=== PATIENT | female | born 1960 | race American Indian/Alaskan Native ===

== ENCOUNTER 2018-01-01 13:35 | Inpatient (IN) | payer OTHER ==
[2018-01-01] MEDS ORDERED: VERSED IV ONE ×3 (14:30→21:47)
[2018-01-01] MEDS ORDERED: VERSED ONE (14:48)
[2018-01-01] MEDS ORDERED: SUBLIMAZE ONE (14:48)
[2018-01-01] MEDS ORDERED: HEPARIN/NS 5000 UNIT/500ML(CATH LAB) 500 ML IR ONE (14:49)
--- NOTE | 2018-01-01 14:52 | Event Note ---
Date: 01/01/[address] lines in the right neck, and bilateral groins, and was unsuccessful. Patient presents with hypertensive emergency with new onset seizure. Request for line access. 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 agrees with central catheter placement. Risks, benefits, and alternatives discussed.
--- NOTE | 2018-01-01 14:52 | Cat Scan Report ---
CT HEAD WITHOUT CONTRAST: HISTORY: Neurological deficit. TECHNIQUE: Sequential 2.5mm CT images. COMPARISON: none. FINDINGS: Cerebral Parenchyma: Within normal limits. Cerebellum: Within normal limits. Brainstem: Within normal limits. Ventricles: Normal. Sella: Normal. Extra-axial spaces: Normal. Basal Cisterns: Normal. Intracranial Hemorrhage: None. Midline Shift: None. Calvarium: Normal. Sinuses: Normal. Mastoid Air Cells: Normal. Visualized Orbits: Normal. IMPRESSION: Cranial CT scan within normal limits. These findings were discussed with Dr. Bishop in the emergency department at 1451 hrs.
[2018-01-01] MEDS: XYLOCAINE 1%/ EPI 1:100,000 INFILTRATI ONE ×2 (15:05→15:06)
--- NOTE | 2018-01-01 15:28 | Operative Report ---
Operative Report Operative Report: EXAM: 1. Ultrasound-guided puncture of the right internal jugular vein 2. Fluoroscopic-guided placement of a right internal jugular tunneled non- cuffed smallbore dual-lumen catheter. DATE: 01/01/18 INDICATION: 57-year-old female with seizures, inability to obtain central access despite trying 3 extremities, with request for IV access. MEDICATIONS: Local anesthetic DEVICES: 5 [place] dual-lumen power PICC catheter SLEEP LAB TECHNICIAN: ZEUS CORDERO MD CONTRAST: None PROCEDURE: The risks, benefits, and alternatives were discussed and informed consent was obtained. The patient was transported to the angiography suite in satisfactory/ stable condition and was transported onto the angiography table. The patient's right internal jugular vein was assessed with ultrasound and determined to be patent prior to procedure. The patient was prepped and draped in a sterile fashion. The puncture site was anesthetized. Under sonographic guidance, the right internal jugular vein was punctured with a 21-gauge micropuncture needle and a 0.018 inch wire was advanced into the inferior vena cava. A suitable exit site was identified on the patient's chest inferior and lateral to the venotomy. The site was anesthetized with local anesthetic and the track was anesthetized. Dermatotomy was made. The 5 [place] dual-lumen smallbore catheter was tunneled between the dermatotomy to the venotomy with the assistance of the peel-away sheath, micropuncture needle, and 0.018 inch wire. Over 0.018 inch wire, the transitional dilator was exchanged for a 5 [place] peel -away sheath. The wire was used to zahra intravascular distance and removed. The catheter was cut to appropriate size. The catheter was advanced through the peel-away sheath and positioned centrally under fluoroscopic guidance. The peel-away sheath was removed. Venotomy was closed with Dermabond. 2-0 Ethilon suture was used to secure the catheter at the dermatotomy. The catheter was charged with heparin per protocol. Biopatch and sterile dressing applied. The patient was transferred from the angiography suite back to the floor in stable condition. FINDINGS: 1. Excellent flow was obtained through the dual lumen smallbore tunneled catheter. 2. The catheter tip is in the right atrium. IMPRESSION: 1. Successful ultrasound and fluoroscopically guided placement of a right internal jugular tunneled non-cuffed dual-lumen catheter.
--- NOTE | 2018-01-01 15:50 | History and Physical Report ---
History of Present Illness Chief complaint: She had a seizure at work History of present illness: 57 YO Female with MO, HTN, CKD presents to ED for evaluation. Pt is confused and unable to provide detailed history. Pt is at bedside and provides history. As per , the patient was at work and had a witnessed seizure as per a coworker. EMS was notified, and upon arrival the patient was found to be confused and postictal. Pt was transported to [facility] for further care and evaluation. Pt seen and evaluated in ED and found to be postictal, but is able to protect her airway. Pt is confused, and Encephalopathic but does not exhibit focal motor/sensory deficit. Vascular surgery consulted in ED for IV access. Pt taken to senior laboratory technician and underwent tunneled catheter placement. Pt also found to have Hypertensive Emergency, Acute Renal Failure as well as Acute Systolic CHF. Pt initiated on Cardene drip and admitted to ICU. Cardiology consulted in ED. Past History Past Medical History: hypertension, renal failure Past Surgical History: Other (Shoulder surgery) Social history: , lives with family. denies: smoking, alcohol abuse, prescription drug abuse Family history: hypertension Medications and Allergies Allergies Allergy/AdvReac Type Severity Reaction Status Date / Time No Known Allergies Allergy Unverified 01/29/17 10:56 Home Medications Medication Instructions Recorded Confirmed Last Taken Type Sulfamethoxazole/Trimethoprim 1 each PO BID #14 tablet 01/29/17 Unknown Rx [Bactrim DS TAB] oxyCODONE /ACETAMINOPHEN [Percocet 1 - 2 tab PO Q6HR PRN #14 tablet 01/29/17 Unknown Rx 5/325] Review of Systems ROS unobtainable: due to mental status Exam - Constitutional Vitals: Temp Pulse Resp BP Pulse Ox 118 H 16 211/134 92 01/01/18 14:42 01/01/18 14:42 01/01/18 14:42 01/01/18 14:42 General appearance: Present: mild distress - EENT Eyes: Present: PERRL ENT: hearing intact, clear oral mucosa - Neck Neck: Present: supple, normal ROM - Respiratory Respiratory effort: normal Respiratory: bilateral: CTA - Cardiovascular Heart Sounds: Present: S1 & S2. Absent: rub, click - Extremities Extremities: pulses symmetrical, No edema Peripheral Pulses: within normal limits - Abdominal General gastrointestinal: Present: soft, non-tender, non-distended, normal bowel sounds Female genitourinary: Present: normal - Integumentary Integumentary: Present: clear, warm, dry - Musculoskeletal Musculoskeletal: generalized weakness - Psychiatric Psychiatric: no appropriate mood/affect, no intact judgment & insight, no memory intact - Neurologic Neurologic: no focal deficits, moves all extremities, no gait normal Results - Labs CBC & Chem 7: 01/01/18 15:46 01/01/18 15:46 Labs: Abnormal lab results 01/01/18 Range/Units 13:43 POC Glucose 212 H (70-105) Assessment and Plan - Patient Problems (1) Encephalopathy Current Visit: Yes Status: Acute Plan to address problem: CT Head, EEG, neuro checks, aspiration precautions, (2) CHF (congestive heart failure) Current Visit: Yes Status: Acute Qualifiers: Heart failure type: systolic Heart failure chronicity: acute Qualified Code(s): I50.21 - Acute systolic (congestive) heart failure Plan to address problem: Admit to telemetry, cardiology consulted in ED, bnp, strict I/O, monitor uop q shift, daily weight, chest x ray, echo. (3) ARF (acute renal failure) with tubular necrosis Current Visit: Yes Status: Acute Plan to address problem: IVF resuscitation therapy, monitor uop q shift, repeat bmp, (4) Status epilepticus Current Visit: Yes Status: Acute Plan to address problem: Seizure precautions, continue antiepileptic therpay (5) Hypertensive crisis Current Visit: Yes Status: Acute Plan to address problem: Juan David long, admit to ICU The high probability of a clinically significant, sudden or life threatening deterioration of the [Cardiac, renal, ] system(s) required my full and direct attention, intervention and personal management. The aggregate critical care time was [65] minutes. This time is in addition to time spent performing reported procedures but includes the following: [x] Data Review and interpretation [x] Patient assessment and monitoring of vital signs [x] Documentation [x] Medication orders and management (6) DVT prophylaxis Current Visit: Yes Status: Acute Plan to address problem: SCD to BLE while in bed
[2018-01-01] MEDS ORDERED: NORMODYNE IV ONE ×2 (15:53→15:56)
[2018-01-01] MEDS ORDERED: KEPPRA 1,000 MG/NS 0.75% 100ML 1,000 MG/100 ML BAG IV ONE (15:57)
[2018-01-01 16:15] LABS: Basophils % (Auto) 0.4 % (0.0-1.8); Eosinophils # (Auto) 0.1 K/mm3 (0.0-0.4); Eosinophils % (Auto) 0.7 % (0.0-4.3); Hematocrit 31.6 % (30.3-42.9); Hemoglobin 10.4 gm/dl (10.1-14.3); Lymphocytes # (Auto) 1.3 K/mm3 (1.2-5.4); Lymphocytes % (Auto) 15.9 % (13.4-35.0); Mean Corpuscular HGB Conc 33 % (30-34); Mean Corpuscular Hemoglobin 28 pg (28-32); Mean Corpuscular Volume 83 fl (79-97); Monocytes # (Auto) 0.8 K/mm3 (0.0-0.8); Monocytes % (Auto) 9.3 % (0.0-7.3); Platelet Count 252 K/mm3 (140-440); Red Blood Count 3.79 M/mm3 (3.65-5.03); Red Cell Distribution Width 15.4 % (13.2-15.2)
--- NOTE | 2018-01-01 16:20 | Emergency Department Report ---
ED General Adult HPI - General Chief complaint: Altered Mental Status Stated complaint: SEIZURES Time Seen by Provider: 01/01/18 15:28 Source: EMS Mode of arrival: Stretcher Limitations: No Limitations - History of Present Illness Initial comments: This is a 57 year old female who has a history of hypertension. She arrives in the emergency department apparently postictal with extremely elevated blood pressure. 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 He states that she is on a blood pressure medicine but he does not know which. Apparently she had a seizure at work. She has never had a seizure before. Initial blood pressure was approximately 220/120. She required sedation as she was poorly cooperative. She appeared to have a nonfocal exam. Her mental status was consistent with postictal this. Nursing staff found no her full axis. She had a very short neck and is morbidly obese. I made an attempt to cannulate EJ which was barely visible. I made an attempt to assess her femoral vein which was successful. However due to her extreme obesity I could not thread a guidewire. Retraction was obviously extremely difficult even with several nurses assisting. The patient was given 2.5 mg of Versed IM. I notified Dr. Horowitz of vascular who came to the emergency department to consult. He stated that due to the patient's body habitus the Technical Staff Assistant wouldn' t be much preferable for IV access. As such I accompanied the patient to the CT suite. Her CT looked grossly negative to me and the patient proceeded to the Technical Staff Assistant where Dr. Horowitz placed a tunneled PICC line. -: Sudden - Related Data Previous Rx's Medication Instructions Recorded Last Taken Type Sulfamethoxazole/Trimethoprim 1 each PO BID #14 tablet 01/29/17 Unknown Rx [Bactrim DS TAB] oxyCODONE /ACETAMINOPHEN [Percocet 1 - 2 tab PO Q6HR PRN #14 tablet 01/29/17 Unknown Rx 5/325] Allergies Allergy/AdvReac Type Severity Reaction Status Date / Time No Known Allergies Allergy Unverified 01/29/17 10:56 ED Review of Systems ROS: Stated complaint: SEIZURES Other details as noted in HPI Comment: Unobtainable due to pts medical conditions ED Past Medical Hx - Past Medical History Previous Medical History?: Yes Hx Hypertension: Yes Hx Renal Disease: Yes (stage 2) - Surgical History Past Surgical History?: Yes Additional Surgical History: shoulder sgy 3 wks ago - Social History Smoking Status: Unknown if ever smoked Substance Use Type: None - Medications Home Medications: Home Medications Medication Instructions Recorded Confirmed Last Taken Type Sulfamethoxazole/Trimethoprim 1 each PO BID #14 tablet 01/29/17 Unknown Rx [Bactrim DS TAB] oxyCODONE /ACETAMINOPHEN [Percocet 1 - 2 tab PO Q6HR PRN #14 tablet 01/29/17 Unknown Rx 5/325] ED Physical Exam - General Limitations: Altered Mental Status General appearance: obese (morbidly) - Head Head exam: Present: atraumatic - Eye Eye exam: Present: PERRL, EOMI (as testable no forced gaze) Pupils: Present: other (equal and reactive pupils) - ENT ENT exam: Present: mucous membranes moist - Neck Neck exam: Present: other (short neck). Absent: meningismus - Respiratory Respiratory exam: Present: normal lung sounds bilaterally - Cardiovascular Cardiovascular Exam: Present: regular rate, normal rhythm. Absent: systolic murmur, diastolic murmur, rubs, gallop - GI/Abdominal GI/Abdominal exam: Present: soft, tenderness (not apparent). Absent: distended , guarding - Extremities Exam Extremities exam: Present: other (extremely obese without gross deformity) - Neurological Exam Neurological exam: Present: other (postictal and nonlateralizing exam) - Psychiatric Psychiatric exam: Present: agitated - Skin Skin exam: Present: warm, dry, intact, normal color. Absent: rash ED Course Vital Signs 01/01/18 01/01/18 14:03 14:42 Pulse Rate 102 H 118 H Respiratory 16 16 Rate Blood Pressure 222/135 211/134 [Left] O2 Sat by Pulse 92 92 Oximetry - Reevaluation(s) Reevaluation #1: A PICC line was placed in the phlebotomist medical lab assistant. The patient's mental status was progressively improving in the CT suite. After she returned from the Technical Staff Assistant her blood pressure was still remarkably elevated. She was given labetalol and placed on a Cardene drip. She was given a gram of Keppra. Her was kept informed of the progress. I discussed the case with Dr. Robbins. He will be admitting the patient to the intensive care unit. Laboratory studies are yet pending. I discussed a CT of the head with Dr. Xavi Alatorre. He stated that it was essentially normal. 01/01/18 16:21 ED Medical Decision Making - Lab Data Result diagrams: 01/01/18 15:46 Laboratory Results - last 24 hr 01/01/18 01/01/18 13:43 15:46 WBC 8.1 RBC 3.79 Hgb 10.4 Hct 31.6 MCV 83 MCH 28 MCHC 33 RDW 15.4 H Plt Count 252 Lymph % (Auto) 15.9 [place] % (Auto) 9.3 H Eos % (Auto) 0.7 Baso % (Auto) 0.4 Lymph # 1.3 [place] # 0.8 Eos # 0.1 Baso # 0.0 Seg Neutrophils % 73.7 H Seg Neutrophils # 6.0 POC Glucose 212 H Laboratory Results - last 24 hr 01/01/18 01/01/18 01/01/18 13:43 15:46 15:46 WBC 8.1 RBC 3.79 Hgb 10.4 Hct 31.6 MCV 83 MCH 28 MCHC 33 RDW 15.4 H Plt Count 252 Lymph % (Auto) 15.9 [place] % (Auto) 9.3 H Eos % (Auto) 0.7 Baso % (Auto) 0.4 Lymph # 1.3 [place] # 0.8 Eos # 0.1 Baso # 0.0 Seg Neutrophils % 73.7 H Seg Neutrophils # 6.0 PT 14.3 INR 1.06 APTT 26.7 Thrombin Time POC Glucose 212 H 01/01/18 15:46 WBC RBC Hgb Hct MCV MCH MCHC RDW Plt Count Lymph % (Auto) [place] % (Auto) Eos % (Auto) Baso % (Auto) Lymph # [place] # Eos # Baso # Seg Neutrophils % Seg Neutrophils # PT INR APTT Thrombin Time 16.2 POC Glucose - EKG Data -: EKG Interpreted by Me EKG shows normal: sinus rhythm, intervals, QRS complexes, ST-T waves Rate: normal - EKG Data Interpretation: other (left axis deviation) - Radiology Data Radiology results: report reviewed interpreted by me: Chest x-ray pending Critical Care Time: Yes Critical care time in (mins) excluding proc time.: 90 Critical care attestation.: If time is entered above; I have spent that time in minutes in the direct care of this critically ill patient, excluding procedure time. ED Disposition Clinical Impression: Hypertensive crisis, Generalized seizure Disposition: [id number] OP ADMIT IP TO THIS HOSP Is pt being admited?: Yes Does the pt Need Aspirin: No (we will hold aspirin now until blood pressure reasonably controlled) Condition: Stable Referrals: PRIMARY CARE, [Primary Care Provider] - 3-5 Days Time of Disposition: 16:31
[2018-01-01 16:24] LABS: INR 1.06 (0.87-1.13)
[2018-01-01 16:25] LABS: Partial Thromboplastin Time 26.7 Sec. (24.2-36.6)
[2018-01-01 16:34] LABS: Creatine Kinase MB 3.1 ng/mL (0.0-4.0)
[2018-01-01 16:36] LABS: Alanine Aminotransferase 8 units/L (7-56); Albumin 3.5 g/dL (3.9-5)
[2018-01-01] MEDS ORDERED: SODIUM CHLORIDE FLUSH SYRINGE 10 ML IV PRN ×2 (16:41→16:48)
[2018-01-01 16:42] LABS: Bilirubin,Direct < 0.2 mg/dL (0-0.2)
[2018-01-01] MEDS ORDERED: NITROSTAT SL PRN (16:48)
[2018-01-01 16:55] LABS: Chol/HDL Ratio 1.97 %
[2018-01-01] MEDS: CARDENE 50 MG in NACL 0.9% 250ML 230 ML IV SCH ×2 (17:09→21:10)
--- NOTE | 2018-01-01 17:09 | XRay Report ---
FINAL REPORT EXAM: XR CHEST 1V AP HISTORY: hypertension consume is TECHNIQUE: upright single view chest PRIORS: None. FINDINGS: Cardiac and mediastinal contours are unremarkable. No focal pulmonary infiltrate is identified. No pleural fluid collection seen. Pulmonary vasculature is unremarkable. SALES PERSON shunt tubing overlies the right naz thorax. Partially seen is a left shoulder prosthesis IMPRESSION: Shunt tubing in left shoulder prosthesis No acute abnormality identified in the chest
[2018-01-01 17:32] LABS: Bilirubin,Urine NEG (Negative); Blood,Urine SM (Negative); Color,Urine Yellow (Yellow); Hyaline Casts,Urine 1 /LPF; Mucus,Urine FEW /HPF; Urobilinogen,Urine < 2.0 mg/dL (<2.0)
[2018-01-01 17:38] LABS: Protein,Urine >500 mg/dL (Negative)
[2018-01-01] MEDS: KEPPRA PO SCH (23:35)
[2018-01-02] MEDS ORDERED: TYLENOL PO ONE (00:32)
[2018-01-02] MEDS: CARDENE 50 MG in NACL 0.9% 250ML 230 ML IV SCH ×2 (01:09→03:04)
[2018-01-02] MEDS: SODIUM CHLORIDE FLUSH SYRINGE 10 ML IV SCH ×3 (08:39→22:28)
--- NOTE | 2018-01-02 09:29 | Consultation ---
History of Present Illness Consult date: 01/02/18 Requesting physician: DORIS LEONE Reason for consult: other (Acute Encephalopathy; ELLEN; [facility]) History of present illness: PULMONARY/CCM CONSULT NOTE (Full dictation # [id number]) Please see dictated notes for full details Past History Past Medical History: hypertension, renal failure Past Surgical History: Other (Shoulder surgery) Social history: , lives with family. denies: smoking, alcohol abuse, prescription drug abuse Family history: hypertension Medications and Allergies Allergies Allergy/AdvReac Type Severity Reaction Status Date / Time No Known Allergies Allergy Unverified 01/29/17 10:56 Home Medications Medication Instructions Recorded Confirmed Last Taken Type Sulfamethoxazole/Trimethoprim 1 each PO BID #14 tablet 01/29/17 Unknown Rx [Bactrim DS TAB] oxyCODONE /ACETAMINOPHEN [Percocet 1 - 2 tab PO Q6HR PRN #14 tablet 01/29/1708/1503/31/13 20:00 Rx 5/325] Amitriptyline [Elavil] 100 mg PO HS 01/02/18 01/03/18 01/01/18 History Estradiol [Estrace] 2 mg PO DAILY 01/02/18 01/03/18 01/01/18 History Labetalol HCl 300 mg PO TID 01/02/18 01/02/18 01/01/18 History Torsemide [Demadex] 20 mg PO BID 01/02/18 01/02/18 01/01/18 History hydrALAZINE [Apresoline TAB] 100 mg PO BID 01/02/18 01/02/18 01/01/18 History Active Meds: Active Medications Nicardipine HCl 50 mg/ Sodium (Chloride) 250 mls @ 25 mls/hr IV TITR [facility]; Protocol Last Titration: 01/02/18 06:04 Dose: 2.5 mg/hr, 12.5 mls/hr Levetiracetam (Keppra) 500 mg PO BID [facility] Last Admin: 01/01/18 23:35 Dose: 500 mg Nitroglycerin (Nitrostat) 0.4 mg SL Q5M PRN PRN Reason: Chest Pain Sodium Chloride (Sodium Chloride Flush Syringe 10 Ml) 10 ml IV BID [facility] Last Admin: 01/02/18 08:39 Dose: Not Given Sodium Chloride (Sodium Chloride Flush Syringe 10 Ml) 10 ml IV PRN PRN PRN Reason: LINE FLUSH Sodium Chloride (Sodium Chloride Flush Syringe 10 Ml) 10 ml IV PRN PRN PRN Reason: LINE FLUSH Physical Examination Vital signs: Vital Signs Pulse Ox 91 01/01/18 13:42 Results - Laboratory Findings CBC and BMP: 01/01/18 15:46 01/01/18 15:46 PT/INR, D-dimer PT 14.3 Sec. (12.2-14.9) 01/01/18 15:46 INR 1.06 (0.87-1.13) 01/01/18 15:46 Abnormal lab findings: Abnormal Labs 01/01/18 01/01/18 01/01/18 13:43 15:46 15:46 RDW 15.4 H [place] % (Auto) 9.3 H Seg Neutrophils % 73.7 H Sodium 136 L BUN 24 H Creatinine 1.9 H Glucose 221 H POC Glucose 212 H Troponin T 0.039 H NT-Pro-B Natriuret Pep Albumin HDL Cholesterol 77 H 01/01/18 01/01/18 01/01/18 15:46 19:45 22:55 RDW [place] % (Auto) Seg Neutrophils % Sodium BUN Creatinine Glucose POC Glucose Troponin T 0.045 H 0.037 H NT-Pro-B Natriuret Pep 3449 H Albumin 3.5 L HDL Cholesterol 01/02/18 00:07 RDW [place] % (Auto) Seg Neutrophils % Sodium BUN Creatinine Glucose POC Glucose 186 H Troponin T NT-Pro-B Natriuret Pep Albumin HDL Cholesterol
--- NOTE | 2018-01-02 09:57 | Progress Note ---
Assessment and Plan 57 year old female admitted with hypertensive emergency and seizure with normal CT scan who required emergency vascular access to control blood pressure. Tunneled PICC line without issue. Removed pressure dressing. Call if there are additional issues. Subjective Date of service: 01/02/18 Interval history: Doing well. Mentating better. Removed pressure dressing. Objective - Constitutional Vitals: Vital Signs - 12hr 01/01/18 01/01/18 01/01/18 22:00 22:15 22:30 Temperature Pulse Rate 97 H 99 H 99 H Respiratory 12 13 13 Rate Blood Pressure 175/84 143/89 153/86 O2 Sat by Pulse 93 96 97 Oximetry 01/01/18 01/01/18 01/01/18 22:46 23:00 23:12 Temperature Pulse Rate 99 H 97 H Respiratory 12 13 13 Rate Blood Pressure 145/79 143/83 143/83 O2 Sat by Pulse 94 94 93 Oximetry 01/01/18 01/01/18 01/01/18 23:15 23:30 23:45 Temperature Pulse Rate 97 H 91 H 93 H Respiratory 12 12 15 Rate Blood Pressure 150/80 156/81 150/90 O2 Sat by Pulse 94 99 100 Oximetry 01/02/18 01/02/18 01/02/18 00:00 00:15 00:30 Temperature 98.4 F Pulse Rate 92 H 90 88 Respiratory 13 13 13 Rate Blood Pressure 156/81 180/90 183/96 O2 Sat by Pulse 100 99 99 Oximetry 01/02/18 01/02/18 01/02/18 00:45 01:00 01:15 Temperature Pulse Rate 89 91 H 88 Respiratory 12 12 12 Rate Blood Pressure 177/90 177/96 178/90 O2 Sat by Pulse 99 98 99 Oximetry 01/02/18 01/02/18 01/02/18 01:30 01:45 02:00 Temperature Pulse Rate 92 H 89 92 H Respiratory 13 13 12 Rate Blood Pressure 167/86 163/89 164/100 O2 Sat by Pulse 99 99 99 Oximetry 01/02/18 01/02/18 01/02/18 02:16 02:30 02:45 Temperature Pulse Rate 98 H 91 H 89 Respiratory 15 11 L 13 Rate Blood Pressure 209/101 169/87 184/92 O2 Sat by Pulse 99 100 99 Oximetry 01/02/18 01/02/18 01/02/18 03:00 03:12 03:15 Temperature 98.4 F Pulse Rate 91 H 91 H Respiratory 13 12 Rate Blood Pressure 182/88 169/88 O2 Sat by Pulse 99 99 Oximetry 01/02/18 01/02/18 01/02/18 03:30 03:45 04:00 Temperature Pulse Rate 89 87 88 Respiratory 12 11 L 11 L Rate Blood Pressure 182/91 181/87 169/90 O2 Sat by Pulse 99 100 99 Oximetry 01/02/18 01/02/18 01/02/18 04:15 04:30 04:45 Temperature Pulse Rate 91 H 84 85 Respiratory 12 11 L 12 Rate Blood Pressure 183/92 168/83 155/80 O2 Sat by Pulse 99 98 98 Oximetry 01/02/18 01/02/18 01/02/18 05:00 05:15 05:30 Temperature Pulse Rate 85 86 88 Respiratory 12 12 18 Rate Blood Pressure 159/81 151/82 152/92 O2 Sat by Pulse 99 99 98 Oximetry 01/02/18 01/02/18 01/02/18 05:46 06:00 06:15 Temperature Pulse Rate 90 67 88 Respiratory 12 19 11 L Rate Blood Pressure 158/98 158/98 162/93 O2 Sat by Pulse 99 98 99 Oximetry 01/02/18 01/02/18 01/02/18 06:30 06:45 07:00 Temperature Pulse Rate 87 89 89 Respiratory 11 L 12 12 Rate Blood Pressure 188/89 177/94 196/91 O2 Sat by Pulse 100 99 97 Oximetry 01/02/18 01/02/18 01/02/18 07:15 07:30 07:45 Temperature Pulse Rate 92 H 92 H 87 Respiratory 11 L 11 L 12 Rate Blood Pressure 185/101 195/97 196/85 O2 Sat by Pulse 100 100 99 Oximetry 01/02/18 08:00 Temperature 98.1 F Pulse Rate Respiratory Rate Blood Pressure O2 Sat by Pulse Oximetry General appearance: Present: no acute distress - EENT Eyes: EOM intact ENT: hearing intact - Neck Neck: other (tunneled PICC line incision c/d/i, no purulence, removed pressure dressing) - Psychiatric Psychiatric: appropriate mood/affect, cooperative - Labs CBC & Chem 7: 01/01/18 15:46 01/01/18 15:46 Labs: Abnormal lab results 01/01/18 01/01/18 01/01/18 Range/Units 13:43 15:46 15:46 RDW 15.4 H (13.2-15.2) % [place] % (Auto) 9.3 H (0.0-7.3) % Seg Neutrophils % 73.7 H (40.0-70.0) % Sodium 136 L (137-145) mmol/L BUN 24 H (7-17) mg/dL Creatinine 1.9 H (0.7-1.2) mg/dL Glucose 221 H (65-100) mg/dL POC Glucose 212 H (70-105) Troponin T 0.039 H (0.00-0.029) ng/mL NT-Pro-B Natriuret Pep (0-900) pg/mL Albumin (3.9-5) g/dL HDL Cholesterol 77 H (40-59) mg/dL 01/01/18 01/01/18 01/01/18 Range/Units 15:46 19:45 22:55 RDW (13.2-15.2) % [place] % (Auto) (0.0-7.3) % Seg Neutrophils % (40.0-70.0) % Sodium (137-145) mmol/L BUN (7-17) mg/dL Creatinine (0.7-1.2) mg/dL Glucose (65-100) mg/dL POC Glucose (70-105) Troponin T 0.045 H 0.037 H (0.00-0.029) ng/mL NT-Pro-B Natriuret Pep 3449 H (0-900) pg/mL Albumin 3.5 L (3.9-5) g/dL HDL Cholesterol (40-59) mg/dL 01/02/18 Range/Units 00:07 RDW (13.2-15.2) % [place] % (Auto) (0.0-7.3) % Seg Neutrophils % (40.0-70.0) % Sodium (137-145) mmol/L BUN (7-17) mg/dL Creatinine (0.7-1.2) mg/dL Glucose (65-100) mg/dL POC Glucose 186 H (70-105) Troponin T (0.00-0.029) ng/mL NT-Pro-B Natriuret Pep (0-900) pg/mL Albumin (3.9-5) g/dL HDL Cholesterol (40-59) mg/dL
[2018-01-02] MEDS: KEPPRA PO SCH ×3 (10:04→22:30)
--- NOTE | 2018-01-02 11:30 | Consultation ---
History of Present Illness Consult date: 01/02/18 Consult reason: hypertension History of present illness: Patient is a 57-year-old woman with a history of severe obesity and chronic severe hypertension. She was brought to the hospital following a witnessed seizure while she was at work. Following the seizure, there was a postictal state, the patient was admitted to the CCU. She is currently awake and alert, comfortable in no distress. She describes no prior history of seizures. Cardiology consultation was requested for "CHF". On further evaluation, patient denies any unusual shortness of breath, denies lower extremity edema, denies chest pain. Chest x-ray on this presentation revealed an enlarged cardiac silhouette, but clear lungs, no evidence of decompensated heart failure. EKG is normal sinus rhythm, left axis deviation and poor R-wave progression, possible old anteroseptal infarct. Most significant cardiovascular finding on this presentation is persistently elevated systolic blood pressures. Blood pressure was 220 on presentation, and despite Cardene infusion, remains in the 170-180 systolic range. Past History Past Medical History: hypertension, renal failure Past Surgical History: Other (Shoulder surgery) Social history: , lives with family. denies: smoking, alcohol abuse, prescription drug abuse Family history: hypertension Medications and Allergies Allergies Allergy/AdvReac Type Severity Reaction Status Date / Time No Known Allergies Allergy Unverified 01/29/17 10:56 Home Medications Medication Instructions Recorded Confirmed Last Taken Type Sulfamethoxazole/Trimethoprim 1 each PO BID #14 tablet 01/29/17 Unknown Rx [Bactrim DS TAB] oxyCODONE /ACETAMINOPHEN [Percocet 1 - 2 tab PO Q6HR PRN #14 tablet 01/29/17 Unknown Rx 5/325] Active Meds: Active Medications Nicardipine HCl 50 mg/ Sodium (Chloride) 250 mls @ 25 mls/hr IV TITR [facility]; Protocol Last Titration: 01/02/18 07:20 Dose: 5 mg/hr, 25 mls/hr Levetiracetam (Keppra) 500 mg PO BID [facility] Last Admin: 01/02/18 10:04 Dose: 500 mg Nitroglycerin (Nitrostat) 0.4 mg SL Q5M PRN PRN Reason: Chest Pain Sodium Chloride (Sodium Chloride Flush Syringe 10 Ml) 10 ml IV BID [facility] Last Admin: 01/02/18 10:05 Dose: 10 ml Sodium Chloride (Sodium Chloride Flush Syringe 10 Ml) 10 ml IV PRN PRN PRN Reason: LINE FLUSH Sodium Chloride (Sodium Chloride Flush Syringe 10 Ml) 10 ml IV PRN PRN PRN Reason: LINE FLUSH Review of Systems Cardiovascular: shortness of breath, no chest pain, no orthopnea, no palpitations, no rapid/irregular heart beat, no edema, no syncope, no lightheadedness Physical Examination Vital Signs Pulse Ox 91 01/01/18 13:42 General appearance: no acute distress HEENT: Positive: PERRL Neck: Positive: neck supple Cardiac: Positive: Reg Rate and Rhythm Lungs: Positive: clear to auscultation Neuro: Positive: Grossly Intact Abdomen: Positive: Soft Female genitourinary: deferred Skin: Positive: Clear Extremities: Absent: edema Results 01/01/18 15:46 01/01/18 15:46 Cardiac Enzymes 01/01/18 Range/Units 15:46 AST 11 (5-40) units/L CK-MB (CK-2) 3.1 (0.0-4.0) ng/mL Coagulation 01/01/18 Range/Units 15:46 PT 14.3 (12.2-14.9) Sec. INR 1.06 (0.87-1.13) APTT 26.7 (24.2-36.6) Sec. Lipids 01/01/18 Range/Units 15:46 Triglycerides 97 (2-149) mg/dL Cholesterol 152 (50-199) mg/dL HDL Cholesterol 77 H (40-59) mg/dL Cholesterol/HDL Ratio 1.97 % CBC 01/01/18 Range/Units 15:46 WBC 8.1 (4.5-11.0) K/mm3 RBC 3.79 (3.65-5.03) M/mm3 Hgb 10.4 (10.1-14.3) gm/dl Hct 31.6 (30.3-42.9) % Plt Count 252 (140-440) K/mm3 Lymph # 1.3 (1.2-5.4) K/mm3 [place] # 0.8 (0.0-0.8) K/mm3 Eos # 0.1 (0.0-0.4) K/mm3 Baso # 0.0 (0.0-0.1) K/mm3 Comprehensive Metabolic Panel 01/01/18 01/01/18 Range/Units 15:46 15:46 Sodium 136 L (137-145) mmol/L Potassium 4.2 (3.6-5.0) mmol/L Chloride 102.3 (98-107) mmol/L Carbon Dioxide 23 (22-30) mmol/L BUN 24 H (7-17) mg/dL Creatinine 1.9 H (0.7-1.2) mg/dL Glucose 221 H (65-100) mg/dL Calcium 9.0 (8.4-10.2) mg/dL Direct Bilirubin < 0.2 (0-0.2) mg/dL Indirect Bilirubin 0.1 mg/dL AST 11 (5-40) units/L ALT 8 (7-56) units/L Alkaline Phosphatase 121 (35-129) units/L Total Protein 7.0 (6.3-8.2) g/dL Albumin 3.5 L (3.9-5) g/dL EKG interpretations - Telemetry EKG Rhythm: Sinus Rhythm Assessment and Plan - Patient Problems (1) Uncontrolled hypertension Current Visit: Yes Status: Acute Plan to address problem: We will defer to internal medicine and neurology for further workup or management of the patient's presenting seizure disorder. We will make recommendations to optimize hypertensive therapy. We will get an echocardiogram for assessment of left ventricular chamber size and function, with underlying history of chronic hypertension and enlarged cardiac silhouette on chest x-ray.
--- NOTE | 2018-01-02 12:27 | Progress Note ---
Assessment and Plan Assessment and plan: Accelerated hypertension. Patient has been weaned off of Cardene drip and will continue her home antihypertensive medications. New-onset seizure disorder. Check EEG. Neurology consultation. Continue AEDs. Consider MRI. Acute renal failure on CKD. Patient was noted to have a creatinine of 1.5 on 01/2017. Continue to monitor BMP closely. Consider nephrology consultation. Check renal ultrasound. Diastolic heart failure. Compensated. EF noted be 60-65%. Mild pulmonary hypertension. Disposition. Patient will be transferred to the floor. History Interval history: No new issues overnight. Hospitalist Physical - Constitutional Vitals: Temp Pulse Resp BP Pulse Ox 98.1 F 89 11 L 174/84 100 01/02/18 08:00 01/02/18 09:46 01/02/18 09:46 01/02/18 09:46 01/02/18 09:46 General appearance: Present: no acute distress - EENT Eyes: Present: PERRL, EOM intact ENT: hearing intact, clear oral mucosa, dentition normal - Neck Neck: Present: supple, normal ROM - Respiratory Respiratory effort: normal Respiratory: bilateral: CTA - Cardiovascular Rhythm: regular Heart Sounds: Present: S1 & S2. Absent: gallop, rub - Extremities Extremities: no ischemia, No edema, Full ROM - Abdominal General gastrointestinal: soft, non-tender, non-distended, normal bowel sounds - Integumentary Integumentary: Present: clear, warm, dry - Neurologic Neurologic: CNII-XII intact, moves all extremities Results - Labs CBC & Chem 7: 01/01/18 15:46 01/01/18 15:46 Labs: Laboratory Last Values WBC 8.1 K/mm3 (4.5-11.0) 01/01/18 15:46 RBC 3.79 M/mm3 (3.65-5.03) 01/01/18 15:46 Hgb 10.4 gm/dl (10.1-14.3) 01/01/18 15:46 Hct 31.6 % (30.3-42.9) 01/01/18 15:46 MCV 83 fl (79-97) 01/01/18 15:46 MCH 28 pg (28-32) 01/01/18 15:46 MCHC 33 % (30-34) 01/01/18 15:46 RDW 15.4 % (13.2-15.2) H 01/01/18 15:46 Plt Count 252 K/mm3 (140-440) 01/01/18 15:46 Lymph % (Auto) 15.9 % (13.4-35.0) 01/01/18 15:46 Mcdonough % (Auto) 9.3 % (0.0-7.3) H 01/01/18 15:46 Eos % (Auto) 0.7 % (0.0-4.3) 01/01/18 15:46 Baso % (Auto) 0.4 % (0.0-1.8) 01/01/18 15:46 Lymph # 1.3 K/mm3 (1.2-5.4) 01/01/18 15:46 [place]onough # 0.8 K/mm3 (0.0-0.8) 01/01/18 15:46 Eos # 0.1 K/mm3 (0.0-0.4) 01/01/18 15:46 Baso # 0.0 K/mm3 (0.0-0.1) 01/01/18 15:46 Seg Neutrophils % 73.7 % (40.0-70.0) H 01/01/18 15:46 Seg Neutrophils # 6.0 K/mm3 (1.8-7.7) 01/01/18 15:46 PT 14.3 Sec. (12.2-14.9) 01/01/18 15:46 INR 1.06 (0.87-1.13) 01/01/18 15:46 APTT 26.7 Sec. (24.2-36.6) 01/01/18 15:46 Thrombin Time 16.2 Sec. (15.1-19.6) 01/01/18 15:46 Sodium 136 mmol/L (137-145) L 01/01/18 15:46 Potassium 4.2 mmol/L (3.6-5.0) 01/01/18 15:46 Chloride 102.3 mmol/L (98-107) 01/01/18 15:46 Carbon Dioxide 23 mmol/L (22-30) 01/01/18 15:46 Anion Gap 15 mmol/L 01/01/18 15:46 BUN 24 mg/dL (7-17) H 01/01/18 15:46 Creatinine 1.9 mg/dL (0.7-1.2) H 01/01/18 15:46 Estimated GFR 33 ml/min 01/01/18 15:46 BUN/Creatinine Ratio 13 % 01/01/18 15:46 Glucose 221 mg/dL (65-100) H 01/01/18 15:46 POC Glucose 186 (70-105) H 01/02/18 00:07 Calcium 9.0 mg/dL (8.4-10.2) 01/01/18 15:46 Total Bilirubin 0.30 mg/dL (0.1-1.2) 01/01/18 15:46 Direct Bilirubin < 0.2 mg/dL (0-0.2) 01/01/18 15:46 Indirect Bilirubin 0.1 mg/dL 01/01/18 15:46 AST 11 units/L (5-40) 01/01/18 15:46 ALT 8 units/L (7-56) 01/01/18 15:46 Alkaline Phosphatase 121 units/L (35-129) 01/01/18 15:46 Total Creatine Kinase 94 units/L (30-135) 01/01/18 15:46 CK-MB (CK-2) 3.1 ng/mL (0.0-4.0) 01/01/18 15:46 CK-MB (CK-2) Rel Index 3.2 (0-4) 01/01/18 15:46 Troponin T 0.037 ng/mL (0.00-0.029) H 01/01/18 22:55 NT-Pro-B Natriuret Pep 3449 pg/mL (0-900) H 01/01/18 15:46 Total Protein 7.0 g/dL (6.3-8.2) 01/01/18 15:46 Albumin 3.5 g/dL (3.9-5) L 01/01/18 15:46 Albumin/Globulin Ratio 1.0 % 01/01/18 15:46 Triglycerides 97 mg/dL (2-149) 01/01/18 15:46 Cholesterol 152 mg/dL (50-199) 01/01/18 15:46 LDL Cholesterol Direct 69 mg/dL (50-130) 01/01/18 15:46 HDL Cholesterol 77 mg/dL (40-59) H 01/01/18 15:46 Cholesterol/HDL Ratio 1.97 % 01/01/18 15:46 Urine Color Yellow (Yellow) 01/01/18 Unknown Urine Turbidity Clear (Clear) 01/01/18 Unknown Urine pH 6.0 (5.0-7.0) 01/01/18 Unknown Ur Specific [place] 1.012 (1.003-1.030) 01/01/18 Unknown Urine Protein >500 mg/dL (Negative) 01/01/18 Unknown Urine Glucose (UA) 50 mg/dL (Negative) 01/01/18 Unknown Urine Ketones Neg mg/dL (Negative) 01/01/18 Unknown Urine Blood Sm (Negative) 01/01/18 Unknown Urine Nitrite Neg (Negative) 01/01/18 Unknown Urine Bilirubin Neg (Negative) 01/01/18 Unknown Urine Urobilinogen < 2.0 mg/dL (<2.0) 01/01/18 Unknown Ur Leukocyte Esterase Neg (Negative) 01/01/18 Unknown Urine WBC (Auto) 1.0 /HPF (0.0-6.0) 01/01/18 Unknown Urine RBC (Auto) 4.0 /HPF (0.0-6.0) 01/01/18 Unknown U Epithel Cells (Auto) < 1.0 /HPF (0-13.0) 01/01/18 Unknown Hyaline Casts 1 /LPF 01/01/18 Unknown Urine Mucus Few /HPF 01/01/18 Unknown
[2018-01-02] MEDS: COZAAR PO SCH (13:24)
[2018-01-02] MEDS: PROCARDIA XL PO SCH (13:25)
[2018-01-02] MEDS: CARDURA PO SCH ×2 (13:25→23:25)
[2018-01-02] MEDS ORDERED: APRESOLINE IV PRN ×2 (16:08→18:00)
[2018-01-02] MEDS ORDERED: NORMODYNE IV PRN (16:41)
--- NOTE | 2018-01-02 17:39 | Electroencephalogram Report ---
Electroencephalogram EEG Date of exam: 01/02/18 Description: Preliminary findings: There is 7 Hz alpha activity in the posterior leads and some anterior beta activity. With drowsiness and early brief sleep there are sleep spindles and K complexes. No epileptiform activity was seen. Interpretation: Preliminary reading: Mildly abnormal waking and sleep electroencephalogram due to slowing of the background rhythm. This EEG does not exclude epilepsy of partial onset. Up to 4 EEGs over several months may be needed to capture interictal epileptiform activity.
--- NOTE | 2018-01-02 17:44 | Consultation ---
History of Present Illness Consult date: 01/02/18 Requesting physician: TIN VANCE Reason for Consult: seizure Chief complaint: seizure, encephalopathy History of present illness: This 57-year-old right-handed -[place] female apparently had a seizure at work yesterday but recalls no warning and has no memory of the event until she woke up in a room here at the hospital. She recalls bitemporal headache starting yesterday without nausea but with some photophobia though no phonophobia. She had no visual changes with the headache. She has had no difficulties with swallowing but says her speech seems a little "weird" such that it takes up her a minute or 2 to think of what to say. Past History Past Medical History: hypertension, renal failure, other (gout) Past Surgical History: appendectomy, , hysterectomy (including ovaries. ), total knee replacement (bilateral), Other (Shoulder surgery with left shoulder replacement. 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 denies: smoking, alcohol abuse (alcohol once a year.), prescription drug abuse, IV drug use Family history: hypertension (mother, 2 sisters and father), stroke (mother and sister), other (epilepsy in her mother. No history of brain aneurysms.) Medications and Allergies Allergies Allergy/AdvReac Type Severity Reaction Status Date / Time No Known Allergies Allergy Unverified 01/29/17 10:56 Home Medications Medication Instructions Recorded Confirmed Last Taken Type Sulfamethoxazole/Trimethoprim 1 each PO BID #14 tablet 01/29/17 Unknown Rx [Bactrim DS TAB] oxyCODONE /ACETAMINOPHEN [Percocet 1 - 2 tab PO Q6HR PRN #14 tablet 01/29/17 Unknown Rx 5/325] Active Meds: Active Medications Doxazosin Mesylate (Cardura) 2 mg PO BID [facility] Last Admin: 01/02/18 13:25 Dose: 2 mg Hydralazine HCl (Apresoline) 10 mg IV Q4HR PRN PRN Reason: SEE INSTRUCTIONS Labetalol HCl (Normodyne) 20 mg IV Q6HR PRN PRN Reason: Blood Pressure Levetiracetam (Keppra) 1,000 mg PO BID [facility] Last Admin: 01/02/18 13:43 Dose: 1,000 mg Losartan Potassium (Cozaar) 50 mg PO QDAY [facility] Last Admin: 01/02/18 13:24 Dose: 50 mg Nifedipine (Procardia Xl) 60 mg PO QDAY [facility] Last Admin: 01/02/18 13:25 Dose: 60 mg Nitroglycerin (Nitrostat) 0.4 mg SL Q5M PRN PRN Reason: Chest Pain Pyridoxine HCl (Vitamin B-6) 200 mg PO QDAY [facility] Sodium Chloride (Sodium Chloride Flush Syringe 10 Ml) 10 ml IV BID [facility] Last Admin: 01/02/18 10:05 Dose: 10 ml Sodium Chloride (Sodium Chloride Flush Syringe 10 Ml) 10 ml IV PRN PRN PRN Reason: LINE FLUSH Review of Systems All systems: negative (no headaches usually, no dizziness, has sleep apnea but though it was working she stopped using it after shoulder surgery in January but apparently has an appointment to have it checked. No memory problems. No paresthesias.) Physical Examination - Vital Signs Vital Signs: Vital Signs Pulse Ox 91 01/01/18 13:42 - Physical Exam Narrative exam: General Appearance: well developed but severely obese (per BMI) mid 50s - [place] female in [employer]. HEENT: atraumatic, normocephalic; no bruits, 2+ Malick without soreness or induration or enlargement, sclerae nonicteric. Oropharynx pink and moist. Neck: supple, no bruits. Heart: no murmur or extra sounds but rapid rate. Extremities: no clubbing or cyanosis but has trace edema bilaterally. 2+ dorsalis pedis pulses bilaterally. Neurologic Exam: Mental Status: Awake, alert, oriented X 3, speech is clear, names pen and tip of pen, and abstracts well. Names President but not Foam Rubber Fabricator, serial 7's are poor and gives 5+7 = 11, no right-left confusion, gets 3 of 3 objects at 3 minutes, spells WORLD backwards correctly but quite slowly. Cranial Nerves: palomares full, no papilledema, SVPs present, PERRLA, EOMs full without nystagmus or diplopia but has short saccades, facial sensation intact to pinprick and light touch, no facial weakness, Fregoso is midline, palate rises symmetrically to phonation but is crowded, shoulder shrug is 5 X 2, tongue protrudes midline. Cerebellar: finger to nose dysmetric at endpoints bilaterally without tremor, heel to hanson is intact bilaterally. Sensory: intact to light touch, pinprick, and vibrations. Double simultaneous stimulation is intact. Motor Exam Upper Extremities: no drift or pronation, Mendez intact. Biological Engineer are 5 right and 4- left, tone is normal. No atrophy or fasciculations are noted visually. Motor Exam Lower Extremities: no leg lag, iliopsoas, quadriceps and anterior tibials and gastrocnemius are 5 X 2. Mendez intact. Tone is normal. No atrophy or fasciculations are noted visually. Reflexes: Palmomental and snout are negative but jaw jerk is slightly positive. Triceps are 0 right remaining 0 with reinforcement and trace to 1 left, biceps are 0 right remaining 0 with reinforcement and trace left and brachioradialis are trace bilaterally. Robin's is negative bilaterally. Knee jerks and ankle jerks are 0 bilaterally even with reinforcement and without clonus. Toes are downgoing bilaterally to Babinski testing. Results - Laboratory Findings CBC and BMP: 01/01/18 15:46 01/01/18 15:46 Abnormal Lab Findings: Abnormal Labs 01/01/18 01/01/18 01/01/18 13:43 15:46 15:46 RDW 15.4 H Mcduffie % (Auto) 9.3 H Seg Neutrophils % 73.7 H Sodium 136 L BUN 24 H Creatinine 1.9 H Glucose 221 H POC Glucose 212 H Troponin T 0.039 H NT-Pro-B Natriuret Pep Albumin HDL Cholesterol 77 H 01/01/18 01/01/18 01/01/18 15:46 19:45 22:55 RDW Mcduffie % (Auto) Seg Neutrophils % Sodium BUN Creatinine Glucose POC Glucose Troponin T 0.045 H 0.037 H NT-Pro-B Natriuret Pep 3449 H Albumin 3.5 L HDL Cholesterol 01/02/18 00:07 RDW Mcduffie % (Auto) Seg Neutrophils % Sodium BUN Creatinine Glucose POC Glucose 186 H Troponin T NT-Pro-B Natriuret Pep Albumin HDL Cholesterol Assessment and Plan Impression: 1. Hypertensive encephalopathy 2. Single seizure 3. Sleep apnea Plan: 1. Discussed blood pressure control with Dr. Carrasco, covering for Dr. Vogt, including the recommendation by up-to-date to get the blood pressure down to 25% less than presenting blood pressure by the end of the first day. He said she could resume her prior pressure medications after pressure has come down into the 150s therefore, which I passed on to Dr. Vance. I alerted Dr. Vance about the additional po meds started by Dr. Vogt. 2. It may be that she has posterior reversible encephalopathy syndrome which can include seizures and I am ordering an MRI to be done once her pressure is stable. With that syndrome, may be best to get her systolic down to the 120 range. 3. I explained to her that untreated sleep apnea leads to strokes and hypertension and heart disease and recommended she resume use of CPAP. 45 min critical care time spent with this patient. Thank you for an interesting consultation on this pleasant mid 50s lady.
[2018-01-02] MEDS: FIORICET PO PRN (19:52)
[2018-01-02] MEDS: VITAMIN B-6 PO SCH (20:28)
[2018-01-02] MEDS ORDERED: CARDENE 50 MG in NACL 0.9% 250ML 230 ML IV SCH (20:35)
--- NOTE | 2018-01-02 21:04 | Ultrasound Report ---
FINAL REPORT EXAM: US RENAL BILAT HISTORY: ARF TECHNIQUE: Ultrasound kidneys PRIORS: None. FINDINGS: Right kidney is 10.0 x 5.1 x 5.3 centimeters Renal cortex is 1.5 centimeters in thickness. There is a 1.8 x 1 1 x 1.7 centimeter right renal cyst. Left kidney is 10.2 x 6.2 x 5.4 centimeters. There is a 1.7 x 1.2 x 2.0 centimeter left renal cyst there is adjacent echogenicity along the margin consistent with a small marginal calcification. Cortex is 1.4 centimeters in thickness Kidneys demonstrate mildly increased echogenicity. There is no evidence of hydronephrosis IMPRESSION: Mildly increased renal echogenicity may indicate underlying medical renal disease Bilateral renal cysts
[2018-01-02] MEDS ORDERED: CATAPRES-TTS PATCH TD SCH (22:00)
[2018-01-02] MEDS ORDERED: LOPRESSOR PO SCH (22:00)
[2018-01-03] MEDS: APRESOLINE IV SCH ×7 (01:45→22:15)
[2018-01-03] MEDS: KEPPRA PO SCH ×2 (09:10→22:15)
[2018-01-03] MEDS: VITAMIN B-6 PO SCH (09:10)
[2018-01-03] MEDS: COZAAR PO SCH (09:11)
[2018-01-03] MEDS: PROCARDIA XL PO SCH ×2 (09:11→22:14)
[2018-01-03] MEDS: SODIUM CHLORIDE FLUSH SYRINGE 10 ML IV SCH ×2 (09:13→22:25)
[2018-01-03] MEDS: CARDURA PO SCH ×2 (10:21→22:14)
--- NOTE | 2018-01-03 11:28 | Consultation ---
History of Present Illness - Reason for Consult Consult date: 01/03/18 acute renal failure, chronic renal failure Requesting physician: DORIS LEONE - History of Present Illness 57 YO Female with MO, HTN, CKD presents to ED for evaluation. Pt is confused and unable to provide detailed history. Pt is at bedside and provides history. As per , the patient was at work and had a witnessed seizure as per a coworker. EMS was notified, and upon arrival the patient was found to be confused and postictal. Pt was transported to [facility] for further care and evaluation. Pt seen and evaluated in ED and found to be postictal, but is able to protect her airway. Pt is confused, and Encephalopathic but does not exhibit focal motor/sensory deficit. Vascular surgery consulted in ED for IV access. Pt taken to lab aide and underwent tunneled catheter placement. Pt also found to have Hypertensive Emergency, Acute Renal Failure as well as Acute Systolic CHF. Pt initiated on Cardene drip and admitted to ICU. Cardiology consulted in ED. Past History Past Medical History: hypertension, renal failure Past Surgical History: Other (Shoulder surgery) Social history: , lives with family. denies: smoking, alcohol abuse, prescription drug abuse Family history: hypertension Review of Systems ROS unobtainable: due to mental status Past History Past Medical History: hypertension, renal failure, other (gout) Past Surgical History: appendectomy, , hysterectomy (including ovaries. ), total knee replacement (bilateral), Other (Shoulder surgery with left shoulder replacement. 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 denies: smoking, alcohol abuse (alcohol once a year.), prescription drug abuse, IV drug use Family history: hypertension (mother, 2 sisters and father), stroke (mother and sister), other (epilepsy in her mother. No history of brain aneurysms.) Medications and Allergies Allergies Allergy/AdvReac Type Severity Reaction Status Date / Time No Known Allergies Allergy Unverified 01/29/17 10:56 Home Medications Medication Instructions Recorded Confirmed Last Taken Type Sulfamethoxazole/Trimethoprim 1 each PO BID #14 tablet 01/29/17 Unknown Rx [Bactrim DS TAB] oxyCODONE /ACETAMINOPHEN [Percocet 1 - 2 tab PO Q6HR PRN #14 tablet 01/29/1708/1503/31/13 20:00 Rx 5/325] Amitriptyline [Elavil] 100 mg PO HS 01/02/18 01/03/18 01/01/18 History Estradiol [Estrace] 2 mg PO DAILY 01/02/18 01/03/18 01/01/18 History Labetalol HCl 300 mg PO TID 01/02/18 01/02/18 01/01/18 History Torsemide [Demadex] 20 mg PO BID 01/02/18 01/02/18 01/01/18 History hydrALAZINE [Apresoline TAB] 100 mg PO BID 01/02/18 01/02/18 01/01/18 History Active Meds: Active Medications Acetaminophen/Butalbital/Caffeine (Fioricet) 2 tab PO Q6H PRN PRN Reason: Headache Last Admin: 01/02/18 19:52 Dose: 2 tab Clonidine HCl (Catapres-Tts Patch) 0.2 mg TD Fr [facility] Last Admin: 01/02/18 22:28 Dose: 0.2 mg Doxazosin Mesylate (Cardura) 2 mg PO BID [facility] Last Admin: 01/03/18 10:21 Dose: 2 mg Hydralazine HCl (Apresoline) 10 mg IV Q4HR [facility] Stop: 01/04/18 21:59 Last Admin: 01/03/18 09:12 Dose: 10 mg Nicardipine HCl 50 mg/ Sodium (Chloride) 250 mls @ 25 mls/hr IV TITR [facility]; Protocol Labetalol HCl (Normodyne) 20 mg IV Q6HR PRN PRN Reason: Blood Pressure Labetalol HCl (Normodyne) 200 mg PO BID [facility] Levetiracetam (Keppra) 1,000 mg PO BID [facility] Last Admin: 01/03/18 09:10 Dose: 1,000 mg Losartan Potassium (Cozaar) 50 mg PO QDAY [facility] Last Admin: 01/03/18 09:11 Dose: 50 mg Nifedipine (Procardia Xl) 90 mg PO Q12HR [facility] Nitroglycerin (Nitrostat) 0.4 mg SL Q5M PRN PRN Reason: Chest Pain Pyridoxine HCl (Vitamin B-6) 200 mg PO QDAY [facility] Last Admin: 01/03/18 09:10 Dose: 200 mg Sodium Chloride (Sodium Chloride Flush Syringe 10 Ml) 10 ml IV BID [facility] Last Admin: 01/03/18 09:13 Dose: 10 ml Sodium Chloride (Sodium Chloride Flush Syringe 10 Ml) 10 ml IV PRN PRN PRN Reason: LINE FLUSH Exam - Vital Signs Vital signs: Vital Signs Pulse Ox 91 01/01/18 13:42 - Physical Exam Narrative exam: General appearance: Present: mild distress - EENT Eyes: Present: PERRL ENT: hearing intact, clear oral mucosa - Neck Neck: Present: supple, normal ROM - Respiratory Respiratory effort: normal Respiratory: bilateral: CTA - Cardiovascular Heart Sounds: Present: S1 & S2. Absent: rub, click - Extremities Extremities: pulses symmetrical, No edema Peripheral Pulses: within normal limits - Abdominal General gastrointestinal: Present: soft, non-tender, non-distended, normal bowel sounds Female genitourinary: Present: normal - Integumentary Integumentary: Present: clear, warm, dry - Musculoskeletal Musculoskeletal: generalized weakness - Psychiatric Psychiatric: no appropriate mood/affect, no intact judgment & insight, no memory intact - Neurologic Neurologic: no focal deficits, moves all extremities, no gait normal Results - Lab Results 01/01/18 15:46 01/01/18 15:46 Most recent lab results Calcium 9.0 mg/dL (8.4-10.2) 01/01/18 15:46 Assessment and Plan Impression: * ELLEN on ckd stage 3--last seen in office 12/31/2017--cr 3.1 * seizure disorder * gout * Acc HTN Plan: * has advanced ckd due to HTN * resume home bp meds * bp control, continue cardene * strict i/os * daily lytes * renal us to rule out obstruction * no indication for recovery coordinator * neuro/cards following
[2018-01-03] MEDS: FIORICET PO PRN ×2 (11:43→18:53)
--- NOTE | 2018-01-03 11:45 | Progress Note ---
Subjective Date of service: 01/03/18 Interval history: Follow-up visit, denies cp at present Echo moderate concentric LVH with preserved systolic function EF 60-65% (1) Uncontrolled hypertension Current Visit: Yes Status: Acute Plan to address problem: need to optimize BP, will titrate meds. Objective Vital Signs Temp Pulse Pulse Resp BP Pulse Ox 01/03/18 10:21 114 H 163/103 01/03/18 10:00 116 H 14 197/86 98 01/03/18 09:46 111 H 12 184/82 98 01/03/18 09:30 110 H 15 230/137 01/03/18 09:16 113 H 12 191/94 01/03/18 09:12 113 H 191/94 01/03/18 09:11 118 H 191/94 01/03/18 09:00 105 H 10 L 191/94 99 01/03/18 08:46 109 H 12 191/94 99 01/03/18 08:30 106 H 14 191/94 99 01/03/18 08:19 99 01/03/18 08:15 105 H 16 191/94 94 01/03/18 08:00 98.5 F 180 H 186/91 96 01/03/18 07:46 164 H 180/85 99 01/03/18 07:30 180/85 98 01/03/18 07:15 102 H 28 H 180/85 95 01/03/18 07:00 105 H 14 177/84 01/03/18 06:46 106 H 14 177/84 01/03/18 06:30 105 H 15 177/84 99 01/03/18 06:16 115 H 20 177/84 01/03/18 06:00 107 H 13 177/84 97 01/03/18 05:46 106 H 15 177/84 98 01/03/18 05:30 107 H 16 177/84 99 01/03/18 05:18 105 H 177/84 01/03/18 05:16 105 H 13 177/84 99 01/03/18 05:00 112 H 14 177/84 01/03/18 04:46 112 H 14 192/84 99 01/03/18 04:30 109 H 16 192/84 01/03/18 04:25 102 H 15 97 01/03/18 04:16 104 H 16 192/84 98 01/03/18 04:00 102 H 16 192/84 97 01/03/18 03:46 97 H 17 171/93 98 01/03/18 03:30 95 H 16 171/93 98 01/03/18 03:23 98.8 F 01/03/18 03:16 103 H 17 171/93 97 01/03/18 03:00 156/89 96 01/03/18 02:46 102 H 11 L 156/89 97 01/03/18 02:30 102 H 15 156/89 97 01/03/18 02:16 104 H 16 156/89 97 01/03/18 02:00 105 H 9 L 156/89 97 01/03/18 01:52 106 H 156/89 01/03/18 01:46 107 H 17 175/91 96 01/03/18 01:30 111 H 12 170/54 95 01/03/18 01:19 98 01/03/18 01:16 106 H 15 170/54 99 01/03/18 01:00 105 H 105 H 15 175/91 92 01/03/18 00:46 123 H 14 162/87 98 01/03/18 00:30 124 H 19 162/87 98 01/03/18 00:16 106 H 14 162/87 100 01/03/18 00:00 106 H 17 170/54 100 01/02/18 23:46 105 H 11 L 162/87 100 01/02/18 23:43 97.9 F 01/02/18 23:30 114 H 16 162/87 93 01/02/18 23:25 109 H 162/87 01/02/18 23:16 105 H 13 162/87 98 01/02/18 23:00 106 H 13 162/87 98 01/02/18 22:55 109 H 15 172/82 99 01/02/18 22:50 97 01/02/18 22:46 105 H 14 172/82 97 01/02/18 22:30 109 H 14 172/82 96 01/02/18 22:28 108 H 172/82 01/02/18 22:16 112 H 14 172/82 97 01/02/18 22:00 110 H 17 93 01/02/18 21:46 111 H 12 164/83 98 01/02/18 21:30 124 H 19 164/83 97 01/02/18 21:17 70 01/02/18 21:16 108 H 16 164/83 98 01/02/18 21:00 104 H 19 164/83 95 01/02/18 20:52 15 01/02/18 20:46 106 H 17 191/93 97 01/02/18 20:43 105 H 17 97 01/02/18 20:30 102 H 16 197/89 95 01/02/18 20:16 103 H 17 209/107 96 01/02/18 20:00 99.5 F 207/96 95 01/02/18 19:46 207/96 97 01/02/18 19:30 100 H 11 L 207/96 98 01/02/18 19:16 104 H 12 201/96 97 01/02/18 19:00 105 H 16 201/96 98 01/02/18 18:46 103 H 17 185/86 97 01/02/18 18:30 110 H 15 189/82 01/02/18 18:16 109 H 13 175/88 01/02/18 18:00 105 H 13 201/92 01/02/18 17:46 121 H 12 175/88 01/02/18 17:30 101 H 21 188/87 99 01/02/18 17:15 98 H 17 188/87 99 01/02/18 17:00 96 H 13 166/87 98 01/02/18 16:59 99 H 190/85 01/02/18 16:46 96 H 18 195/96 100 01/02/18 16:30 92 H 19 196/97 100 01/02/18 16:16 93 H 13 203/95 100 01/02/18 16:00 94 H 88 11 L 206/102 100 01/02/18 15:46 93 H 12 206/106 97 01/02/18 15:30 93 H 29 H 215/103 100 01/02/18 15:16 106 H 13 230/117 100 01/02/18 15:00 88 15 212/97 100 01/02/18 14:45 91 H 19 214/83 100 01/02/18 14:30 88 14 204/97 100 01/02/18 14:16 89 13 206/101 98 01/02/18 14:00 79 8 L 200/98 100 01/02/18 13:46 82 13 176/87 99 01/02/18 13:30 83 10 L 190/88 100 01/02/18 13:25 85 192/90 01/02/18 13:24 85 192/90 01/02/18 13:16 83 13 192/90 100 01/02/18 13:00 88 10 L 189/99 100 01/02/18 12:45 87 9 L 185/93 100 01/02/18 12:30 89 10 L 168/83 99 01/02/18 12:15 90 12 188/88 99 01/02/18 12:00 98.1 F 88 99 H 16 188/84 97 01/02/18 11:46 90 10 L 184/79 99 - Physical Examination General: No Apparent Distress HEENT: Positive: PERRL Neck: Positive: neck supple Cardiac: Positive: Reg Rate and Rhythm, S1/S2 Lungs: Positive: Normal Exam Neuro: Positive: Grossly Intact Abdomen: Positive: Soft Skin: Positive: Clear Extremities: Absent: edema
[2018-01-03] MEDS ORDERED: NORMODYNE PO SCH (12:00)
--- NOTE | 2018-01-03 13:36 | Progress Note ---
Assessment and Plan Assessment and plan: Accelerated hypertension. Patient has been weaned off of Cardene drip. Increase Procardia to 90 mg twice a day and add labetalol by mouth. Neurology suggests getting systolic blood pressures in the 120 range. New-onset seizure disorder. EEG reveals no epileptiform activity.. Neurology following. Continue AEDs. Follow-up MRI. This may represent posterior reversible encephalopathy syndrome which can include seizures Acute renal failure on CKD. Patient was noted to have a creatinine of 1.5 on 01/2017. Continue to monitor BMP closely. Consider nephrology consultation. Renal ultrasound reveals mildly increased renal echogenicity likely indicating underlying medical renal disease. Diastolic heart failure. Compensated. EF noted be 60-65%. Mild pulmonary hypertension. Disposition. Patient will be transferred to the floor. History Interval history: No new issues overnight. Hospitalist Physical - Constitutional Vitals: Temp Pulse Resp BP Pulse Ox 98.5 F 103 H 18 178/78 94 01/03/18 08:00 01/03/18 12:45 01/03/18 12:45 01/03/18 12:45 01/03/18 12:45 General appearance: Present: no acute distress - EENT Eyes: Present: PERRL, EOM intact ENT: hearing intact, clear oral mucosa, dentition normal - Neck Neck: Present: supple, normal ROM - Respiratory Respiratory effort: normal Respiratory: bilateral: CTA - Cardiovascular Rhythm: regular Heart Sounds: Present: S1 & S2. Absent: gallop, rub - Extremities Extremities: no ischemia, No edema, Full ROM - Abdominal General gastrointestinal: soft, non-tender, non-distended, normal bowel sounds - Integumentary Integumentary: Present: clear, warm, dry - Neurologic Neurologic: CNII-XII intact, moves all extremities Results - Labs CBC & Chem 7: 01/01/18 15:46 01/01/18 15:46 Labs: Laboratory Last Values WBC 8.1 K/mm3 (4.5-11.0) 01/01/18 15:46 RBC 3.79 M/mm3 (3.65-5.03) 01/01/18 15:46 Hgb 10.4 gm/dl (10.1-14.3) 01/01/18 15:46 Hct 31.6 % (30.3-42.9) 01/01/18 15:46 MCV 83 fl (79-97) 01/01/18 15:46 MCH 28 pg (28-32) 01/01/18 15:46 MCHC 33 % (30-34) 01/01/18 15:46 RDW 15.4 % (13.2-15.2) H 01/01/18 15:46 Plt Count 252 K/mm3 (140-440) 01/01/18 15:46 Lymph % (Auto) 15.9 % (13.4-35.0) 01/01/18 15:46 [place] % (Auto) 9.3 % (0.0-7.3) H 01/01/18 15:46 Eos % (Auto) 0.7 % (0.0-4.3) 01/01/18 15:46 Baso % (Auto) 0.4 % (0.0-1.8) 01/01/18 15:46 Lymph # 1.3 K/mm3 (1.2-5.4) 01/01/18 15:46 [place] # 0.8 K/mm3 (0.0-0.8) 01/01/18 15:46 Eos # 0.1 K/mm3 (0.0-0.4) 01/01/18 15:46 Baso # 0.0 K/mm3 (0.0-0.1) 01/01/18 15:46 Seg Neutrophils % 73.7 % (40.0-70.0) H 01/01/18 15:46 Seg Neutrophils # 6.0 K/mm3 (1.8-7.7) 01/01/18 15:46 PT 14.3 Sec. (12.2-14.9) 01/01/18 15:46 INR 1.06 (0.87-1.13) 01/01/18 15:46 APTT 26.7 Sec. (24.2-36.6) 01/01/18 15:46 Thrombin Time 16.2 Sec. (15.1-19.6) 01/01/18 15:46 Sodium 136 mmol/L (137-145) L 01/01/18 15:46 Potassium 4.2 mmol/L (3.6-5.0) 01/01/18 15:46 Chloride 102.3 mmol/L (98-107) 01/01/18 15:46 Carbon Dioxide 23 mmol/L (22-30) 01/01/18 15:46 Anion Gap 15 mmol/L 01/01/18 15:46 BUN 24 mg/dL (7-17) H 01/01/18 15:46 Creatinine 1.9 mg/dL (0.7-1.2) H 01/01/18 15:46 Estimated GFR 33 ml/min 01/01/18 15:46 BUN/Creatinine Ratio 13 % 01/01/18 15:46 Glucose 221 mg/dL (65-100) H 01/01/18 15:46 POC Glucose 186 (70-105) H 01/02/18 00:07 Calcium 9.0 mg/dL (8.4-10.2) 01/01/18 15:46 Total Bilirubin 0.30 mg/dL (0.1-1.2) 01/01/18 15:46 Direct Bilirubin < 0.2 mg/dL (0-0.2) 01/01/18 15:46 Indirect Bilirubin 0.1 mg/dL 01/01/18 15:46 AST 11 units/L (5-40) 01/01/18 15:46 ALT 8 units/L (7-56) 01/01/18 15:46 Alkaline Phosphatase 121 units/L (35-129) 01/01/18 15:46 Total Creatine Kinase 94 units/L (30-135) 01/01/18 15:46 CK-MB (CK-2) 3.1 ng/mL (0.0-4.0) 01/01/18 15:46 CK-MB (CK-2) Rel Index 3.2 (0-4) 01/01/18 15:46 Troponin T 0.037 ng/mL (0.00-0.029) H 01/01/18 22:55 NT-Pro-B Natriuret Pep 3449 pg/mL (0-900) H 01/01/18 15:46 Total Protein 7.0 g/dL (6.3-8.2) 01/01/18 15:46 Albumin 3.5 g/dL (3.9-5) L 01/01/18 15:46 Albumin/Globulin Ratio 1.0 % 01/01/18 15:46 Triglycerides 97 mg/dL (2-149) 01/01/18 15:46 Cholesterol 152 mg/dL (50-199) 01/01/18 15:46 LDL Cholesterol Direct 69 mg/dL (50-130) 01/01/18 15:46 HDL Cholesterol 77 mg/dL (40-59) H 01/01/18 15:46 Cholesterol/HDL Ratio 1.97 % 01/01/18 15:46 Urine Color Yellow (Yellow) 01/01/18 Unknown Urine Turbidity Clear (Clear) 01/01/18 Unknown Urine pH 6.0 (5.0-7.0) 01/01/18 Unknown Ur Specific [place] 1.012 (1.003-1.030) 01/01/18 Unknown Urine Protein >500 mg/dL (Negative) 01/01/18 Unknown Urine Glucose (UA) 50 mg/dL (Negative) 01/01/18 Unknown Urine Ketones Neg mg/dL (Negative) 01/01/18 Unknown Urine Blood Sm (Negative) 01/01/18 Unknown Urine Nitrite Neg (Negative) 01/01/18 Unknown Urine Bilirubin Neg (Negative) 01/01/18 Unknown Urine Urobilinogen < 2.0 mg/dL (<2.0) 01/01/18 Unknown Ur Leukocyte Esterase Neg (Negative) 01/01/18 Unknown Urine WBC (Auto) 1.0 /HPF (0.0-6.0) 01/01/18 Unknown Urine RBC (Auto) 4.0 /HPF (0.0-6.0) 01/01/18 Unknown U Epithel Cells (Auto) < 1.0 /HPF (0-13.0) 01/01/18 Unknown Hyaline Casts 1 /LPF 01/01/18 Unknown Urine Mucus Few /HPF 01/01/18 Unknown
[2018-01-03] MEDS: BIDIL 20/37.5MG PO SCH ×2 (15:14→22:13)
--- NOTE | 2018-01-03 16:25 | Progress Note ---
Assessment and Plan Hypertensive emergency. Witnessed seizure, possibly related to hypertensive emergency. Acute encephalopathy, possibly a combination of hypertensive encephalopathy as well as postictal state. Morbid obesity. H/O YAYO (Non compliant with CPAP) Chronic kidney disease, possible acute element. Cardiomyopathy with cardiomegaly. Pulmonary HTN History of hypertension. Mild hyponatremia. Hyperglycemia. Elevated cardiac enzymes (NSTEMI) - scheduled IV hydralazine while up-titrating oral antihypertensives - supplemental oxygen for sats < 90% - counselled improved BIPAP use while asleep - azotemia per nephrology - neurology evaluation ongoing - continue Keppra for now - cardiology work-up ongoing - resume nicardipine drip if systolics remain > 180 mmHg on current regimen - weight loss counselled - continue GI & VTE prophylaxis - Pulmonary HTN may be related to YAYO; will need outpatient w/up - continue orther care per attending / other consultants The high probability of a clinically significant, sudden or life-threatening deterioration of the [cardiac, neurology, renal] system(s) required my full and direct attention, intervention and personal management. The aggregate critical care time was [34] minutes without overlap. Time includes spent on; [x] Data Review and interpretation [x] Patient assessment and monitoring of vital signs [x] Documentation [x] Medication orders and management Subjective Date of service: 01/03/18 Principal diagnosis: Hypertensive emergency; Seizures; Acute encephalopathy; Pulm HTN; YAYO Interval history: Patient is seen today for: Hypertensive emergency; Seizures; Acute encephalopathy; Morbid obesity; H/O YAYO (Non compliant with CPAP); CKD; Pulmonary HTN Seen and examined at bedside; 24hour events reviewed; nursing and respiratory care staff consulted; no adverse overnight events reported to me; resting in bed ; feels a little better but still with headache; denies acute chest pains or palpitations; no repeat seizures; BP's still running up tp SBP 200 mmHg at times Objective Vital Signs - 12hr 01/03/18 01/03/18 01/03/18 04:25 04:30 04:46 Temperature Pulse Rate 109 H 112 H Pulse Rate [ 102 H Apical] Respiratory 15 16 14 Rate Blood Pressure 192/84 192/84 O2 Sat by Pulse 97 99 Oximetry 01/03/18 01/03/18 01/03/18 05:00 05:16 05:18 Temperature Pulse Rate 112 H 105 H 105 H Pulse Rate [ Apical] Respiratory 14 13 Rate Blood Pressure 177/84 177/84 177/84 O2 Sat by Pulse 99 Oximetry 01/03/18 01/03/18 01/03/18 05:30 05:46 06:00 Temperature Pulse Rate 107 H 106 H 107 H Pulse Rate [ Apical] Respiratory 16 15 13 Rate Blood Pressure 177/84 177/84 177/84 O2 Sat by Pulse 99 98 97 Oximetry 01/03/18 01/03/18 01/03/18 06:16 06:30 06:46 Temperature Pulse Rate 115 H 105 H 106 H Pulse Rate [ Apical] Respiratory 20 15 14 Rate Blood Pressure 177/84 177/84 177/84 O2 Sat by Pulse 99 Oximetry 01/03/18 01/03/18 01/03/18 07:00 07:15 07:30 Temperature Pulse Rate 105 H 102 H Pulse Rate [ Apical] Respiratory 14 28 H Rate Blood Pressure 177/84 180/85 180/85 O2 Sat by Pulse 95 98 Oximetry 01/03/18 01/03/18 01/03/18 07:46 08:00 08:15 Temperature 98.5 F Pulse Rate 164 H 112 H 105 H Pulse Rate [ 118 H Apical] Respiratory 21 16 Rate Blood Pressure 180/85 186/91 191/94 O2 Sat by Pulse 99 96 94 Oximetry 01/03/18 01/03/18 01/03/18 08:19 08:30 08:46 Temperature Pulse Rate 106 H 109 H Pulse Rate [ Apical] Respiratory 14 12 Rate Blood Pressure 191/94 191/94 O2 Sat by Pulse 99 99 99 Oximetry 01/03/18 01/03/18 01/03/18 09:00 09:11 09:12 Temperature Pulse Rate 105 H 118 H 113 H Pulse Rate [ Apical] Respiratory 10 L Rate Blood Pressure 191/94 191/94 191/94 O2 Sat by Pulse 99 Oximetry 01/03/18 01/03/18 01/03/18 09:16 09:30 09:46 Temperature Pulse Rate 113 H 110 H 111 H Pulse Rate [ Apical] Respiratory 12 15 12 Rate Blood Pressure 191/94 230/137 184/82 O2 Sat by Pulse 98 Oximetry 01/03/18 01/03/18 01/03/18 10:00 10:16 10:21 Temperature Pulse Rate 116 H 109 H 114 H Pulse Rate [ Apical] Respiratory 14 17 Rate Blood Pressure 197/86 163/103 163/103 O2 Sat by Pulse 98 99 Oximetry 01/03/18 01/03/18 01/03/18 10:30 10:46 11:00 Temperature Pulse Rate 111 H 115 H 112 H Pulse Rate [ Apical] Respiratory 13 22 15 Rate Blood Pressure 206/108 206/108 201/106 O2 Sat by Pulse 98 97 97 Oximetry 01/03/18 01/03/18 01/03/18 11:16 11:30 11:41 Temperature Pulse Rate 109 H 113 H 113 H Pulse Rate [ Apical] Respiratory 13 15 Rate Blood Pressure 201/106 201/95 201/95 O2 Sat by Pulse 98 98 Oximetry 01/03/18 01/03/18 01/03/18 11:46 12:00 12:15 Temperature Pulse Rate 103 H 97 H 97 H Pulse Rate [ 103 H Apical] Respiratory 15 16 12 Rate Blood Pressure 209/93 166/138 165/84 O2 Sat by Pulse 96 98 98 Oximetry 01/03/18 01/03/18 01/03/18 12:30 12:45 13:00 Temperature Pulse Rate 100 H 103 H 100 H Pulse Rate [ Apical] Respiratory 18 18 18 Rate Blood Pressure 175/86 178/78 185/80 O2 Sat by Pulse 97 94 97 Oximetry 01/03/18 01/03/18 01/03/18 13:15 13:30 13:45 Temperature Pulse Rate 102 H 107 H 103 H Pulse Rate [ Apical] Respiratory 20 10 L 15 Rate Blood Pressure 170/83 154/78 164/80 O2 Sat by Pulse 97 97 97 Oximetry 01/03/18 01/03/18 01/03/18 14:00 14:16 14:30 Temperature Pulse Rate 101 H 102 H 101 H Pulse Rate [ Apical] Respiratory 16 13 13 Rate Blood Pressure 169/81 169/81 157/75 O2 Sat by Pulse 98 98 98 Oximetry 01/03/18 01/03/18 01/03/18 14:45 15:00 15:14 Temperature Pulse Rate 102 H 97 H 98 H Pulse Rate [ Apical] Respiratory 18 15 Rate Blood Pressure 160/80 170/78 170/70 O2 Sat by Pulse 98 98 Oximetry 01/03/18 01/03/18 01/03/18 15:15 15:17 15:30 Temperature Pulse Rate 98 H 95 H 94 H Pulse Rate [ Apical] Respiratory 15 17 Rate Blood Pressure 168/84 170/79 163/82 O2 Sat by Pulse 98 98 Oximetry Constitutional: no acute distress, alert, other (Obese AAF, normocephalic and atraumatic with mildly increased respiratory effort) Eyes: non-icteric ENT: oropharynx moist, other (Mallampati 4) Neck: supple, no lymphadenopathy, no JVD, other (large neck circumference) Effort: mildly labored Ascultation: Bilateral: clear, diminished breath sounds (bases) Percussion: Bilateral: not dull Cardiovascular: regular rate and rhythm, other (No R/M) Gastrointestinal: normoactive bowel sounds, soft, non-tender, non-distended, other (No HSM) Integumentary: normal Extremities: no cyanosis, no edema, pulses normal, no ischemia or petechiae Neurologic: normal mental status, non-focal exam, pupils equal and round, motor strength normal and Psychiatric: mood appropriate, affect normal CBC and BMP: 01/01/18 15:46 01/04/18 05:01 ABG, PT/INR, D-dimer: PT/INR, D-dimer PT 14.3 Sec. (12.2-14.9) 01/01/18 15:46 INR 1.06 (0.87-1.13) 01/01/18 15:46 Abnormal lab findings: Abnormal Labs 01/01/18 01/01/18 01/01/18 13:43 15:46 15:46 RDW 15.4 H [place] % (Auto) 9.3 H Seg Neutrophils % 73.7 H Sodium 136 L BUN 24 H Creatinine 1.9 H Glucose 221 H POC Glucose 212 H Troponin T 0.039 H NT-Pro-B Natriuret Pep Albumin HDL Cholesterol 77 H 01/01/18 01/01/18 01/01/18 15:46 19:45 22:55 RDW [place] % (Auto) Seg Neutrophils % Sodium BUN Creatinine Glucose POC Glucose Troponin T 0.045 H 0.037 H NT-Pro-B Natriuret Pep 3449 H Albumin 3.5 L HDL Cholesterol 01/02/18 00:07 RDW [place] % (Auto) Seg Neutrophils % Sodium BUN Creatinine Glucose POC Glucose 186 H Troponin T NT-Pro-B Natriuret Pep Albumin HDL Cholesterol Chest x-ray: image reviewed (gross cardiomegaly; RIJ CVL in place) Allied health notes reviewed: nursing
[2018-01-03] MEDS: NORMODYNE PO SCH (22:15)
[2018-01-04] MEDS: FIORICET PO PRN ×2 (00:47→22:34)
--- NOTE | 2018-01-04 00:50 | Consultation ---
PULMONARY CRITICAL CARE CONSULT NOTE CONSULTING PHYSICIAN: Dr. Robbins. REASON FOR CONSULTATION: Critical care hypertensive emergency with an acute encephalopathy. CHIEF COMPLAINT AND HISTORY OF PRESENT ILLNESS: The patient is a 57-year-old -[place] female with past medical history significant for diagnosis of hypertension and chronic kidney disease, came into the Emergency Room, confused, unable to give a history. Her was at bedside, mentioned that she was at work. She had a witnessed seizure. Emergency medical services were notified. She was found confused and postictal. She denied any prior history of seizures. In the ED, she was able to protect her airway. Vascular Surgery was consulted for vascular access. She never did become significantly hypotensive; however, evaluation further revealed that her blood pressure was severely elevated. Presentation blood pressure was as high as 211/134. She was started on a Cardene drip and transferred to the Intensive Care Unit where I stopped by to see her. When I stopped by to see her, she was a little more coherent, still felt a little confused. Denied chest pains. Denied palpitations. With regards to tobacco use or abuse, she denies any history of tobacco use or abuse whatsoever. This really is as much of the history of presentation as I have. PAST MEDICAL HISTORY: Hypertension, chronic kidney disease. She is obese. PAST SURGICAL HISTORY: She has had shoulder surgery. MEDICATIONS: She was on at the time I stopped by to see were reviewed, pertinent medications include the following: She was on a Cardene drip, had been off titrated back to about 5 mg per hour, earlier being at 1 mg per hour. She was on hydralazine 10 mg IV q.4 hours p.r.n., systolic blood pressure greater than 170. She was on Keppra 1 gram IV b.i.d. ALLERGIES: No known drug allergies. DIET: Obese lady, denies acute weight loss or gain in the preceding few weeks to months. FAMILY AND SOCIAL HISTORY: Lives in the community. She is . Denies alcohol, tobacco, or illicit drug use or abuse. There is a family history of hypertension. REVIEW OF SYSTEMS: No overt loss of consciousness. She did have the encephalopathy post-seizure. Denies any gross hematochezia or melena. Denies gross hematuria. Denies new onset focal weakness. No palpitations. No heat or cold intolerance. No polydipsia, no polyuria. She denies any new rashes. Denies any new lumps or bumps on her body. Denies any new onset leg pain or swelling either unilaterally or bilaterally. Complete 13-system review of systems obtained. Pertinent positives and/or negatives as in body of history above, otherwise, they are noncontributory. PHYSICAL EXAMINATION: VITAL SIGNS: At presentation, she was afebrile, temperature 98.6, pulse was 113, respiratory rate was 15, blood pressure 211/134, O2 sats were 92%, inspired oxygen concentration at that time was not recorded. At the time I stopped by to see her, she was about 98% that was on 2 liters nasal cannula. GENERAL: A middle-aged -[place] female, morbidly obese. Normocephalic, atraumatic, talking to me without overt respiratory distress. HEAD, EYES, EARS, NOSE AND THROAT: She is anicteric. No conjunctival erythema. No gross jugular venous distention, no thyromegaly. Oropharynx is Mallampati #4 oropharynx. Oropharynx was moist. LUNGS: Auscultation of both lung palomares, lungs are clear bilaterally, diminished basilar air entry. No wheezing. HEART: Heart sounds 1 and 2 are heard, regular rate and rhythm at the time of my evaluation. No rubs or murmurs. EXTREMITIES: Without overt digital clubbing or cyanosis. No pedal edema. Dorsalis pedis pulses were palpable bilaterally. NEUROLOGIC: Pupils were equal, round, about 3 mm, reactive to light. Extraocular muscle movements were intact. She moved all 4 extremities spontaneously. LABORATORY AND DIAGNOSTIC DATA: From my review, white cell count 8100, hemoglobin 10.4, hematocrit 31.6, platelet count 252. INR 1.06. Serum sodium 136, potassium 4.2, chloride 102, bicarbonate 23, BUN 24, creatinine 1.9, glucose 221. Liver function test within normal limits. BNP was elevated at 3449. LDL cholesterol 69. Urinalysis was negative for nitrites and leukocyte esterase, unremarkable. No blood cultures were done. Chest x-ray was done at presentation essentially shows gross cardiomegaly, slight increase in interstitial markings without overt edema. Good inspiratory effort. No pneumothorax. No bony fracture. CT scan was also done of the head at presentation, normal CT scan of the head. An EKG was done at presentation. No ST elevations. Sinus rhythm at about 86 beats per minute. ASSESSMENT: 1. Hypertensive emergency. 2. Witnessed seizure, possibly related to hypertensive emergency. 3. Acute encephalopathy, possibly a combination of hypertensive encephalopathy as well as postictal state. 4. Morbid obesity. 5. Chronic kidney disease, possible acute element. 6. Cardiomyopathy with cardiomegaly. 7. History of hypertension. 8. Mild hyponatremia. 9. Hyperglycemia. 10. Elevated cardiac enzymes, essentially non-ST elevation myocardial infarction. PLAN: Continue empiric Keppra for now, she will benefit from Neurology evaluation. I do feel that she probably does not need antiepileptic drugs down the line. I think this is all related to the hypertensive emergency. 2D echocardiogram, I will defer to the traffic incident management manager with regard to management. They may have a recent one at the office. I will go ahead and schedule the hydralazine with hold parameters for systolic blood pressure less than 160 while beginning to reintroduce oral antihypertensive medications. [employer]man is about to write some medications for her. Aspiration precautions will be maintained. Oxygen will be weaned to keep sats greater than or equal to about 90%. I will discuss obstructive sleep apnea and sleep disordered breathing with her and see if we can empirically deploy BiPAP or certainly get her to follow up outpatient for further workup. She will be placed on GI prophylaxis as well as DVT prophylaxis. We will continue to titrate the Cardene drip, try and keep systolic less than 150. Flu and pneumonia vaccinations will be addressed per protocol. Certainly, weight loss has again been counseled. Thank you very much for the consult. We will follow along and make further recommendations as picture progresses/becomes clearer. At this time, I have spent about 40 minutes of critical care time without overlap and excluding any procedural time. She is critically ill on life-sustaining interventions including the Cardene drip at high risk for further deterioration in the cardiovascular as well as neurologic systems including the risk of . JOB# [id number] SHAUNNA/SANDRA CHANG
[2018-01-04] MEDS: APRESOLINE IV SCH ×5 (02:04→17:42)
[2018-01-04 05:54] LABS: Calcium 8.7 mg/dL (8.4-10.2)
[2018-01-04] MEDS: BIDIL 20/37.5MG PO SCH ×3 (06:29→22:33)
--- NOTE | 2018-01-04 09:21 | Progress Note ---
Assessment and Plan Impression: * ELLEN on ckd stage 3--last seen in office 12/31/2017--cr 3.1 * seizure disorder * gout * Acc HTN Plan: * has advanced ckd due to HTN * resume home bp meds * hold arb until cr stable * bp control, wean off cardene gtt * add po hydralazine * strict i/os * daily lytes * no indication for hammerer helper * neuro/cards following Subjective Date of service: 01/04/18 Principal diagnosis: ckd 3 Interval history: resting in bed today Objective - Exam Narrative Exam: General appearance: Present: mild distress - EENT Eyes: Present: PERRL ENT: hearing intact, clear oral mucosa - Neck Neck: Present: supple, normal ROM - Respiratory Respiratory effort: normal Respiratory: bilateral: CTA - Cardiovascular Heart Sounds: Present: S1 & S2. Absent: rub, click - Extremities Extremities: pulses symmetrical, No edema Peripheral Pulses: within normal limits - Abdominal General gastrointestinal: Present: soft, non-tender, non-distended, normal bowel sounds Female genitourinary: Present: normal - Integumentary Integumentary: Present: clear, warm, dry - Musculoskeletal Musculoskeletal: generalized weakness - Psychiatric Psychiatric: no appropriate mood/affect, no intact judgment & insight, no memory intact - Neurologic Neurologic: no focal deficits, moves all extremities, no gait normal - Vital Signs Vital signs: Vital Signs - 12hr 01/03/18 01/03/18 01/03/18 21:30 21:46 22:00 Temperature Pulse Rate 112 H 123 H 114 H Pulse Rate [ Apical] Respiratory 10 L 13 29 H Rate Respiratory 19 Rate [Left Hand ] Blood Pressure 167/92 179/106 180/75 O2 Sat by Pulse 97 100 97 Oximetry 01/03/18 01/03/18 01/03/18 22:13 22:14 22:15 Temperature Pulse Rate 111 H 111 H 109 H Pulse Rate [ Apical] Respiratory 24 Rate Respiratory Rate [Left Hand ] Blood Pressure 180/75 180/75 173/78 O2 Sat by Pulse 96 Oximetry 01/03/18 01/03/18 01/03/18 22:30 22:36 22:46 Temperature Pulse Rate 95 H 97 H 101 H Pulse Rate [ Apical] Respiratory 22 20 22 Rate Respiratory Rate [Left Hand ] Blood Pressure 154/75 154/75 150/78 O2 Sat by Pulse 95 98 98 Oximetry 01/03/18 01/03/18 01/03/18 23:00 23:15 23:30 Temperature Pulse Rate 106 H 104 H 106 H Pulse Rate [ Apical] Respiratory 14 20 15 Rate Respiratory Rate [Left Hand ] Blood Pressure 147/66 135/57 150/78 O2 Sat by Pulse 98 99 100 Oximetry 01/03/18 01/03/18 01/04/18 23:45 23:48 00:00 Temperature 99.1 F Pulse Rate 107 H 108 H 112 H Pulse Rate [ Apical] Respiratory 12 18 22 Rate Respiratory Rate [Left Hand ] Blood Pressure 120/54 130/61 127/62 O2 Sat by Pulse 99 98 Oximetry 01/04/18 01/04/18 01/04/18 00:10 00:15 00:30 Temperature Pulse Rate 101 H 98 H Pulse Rate [ 94 H Apical] Respiratory 20 24 26 H Rate Respiratory Rate [Left Hand ] Blood Pressure 132/63 139/61 O2 Sat by Pulse 98 99 100 Oximetry 01/04/18 01/04/18 01/04/18 00:45 01:00 01:01 Temperature Pulse Rate 95 H 94 H 94 H Pulse Rate [ Apical] Respiratory 23 13 Rate Respiratory Rate [Left Hand ] Blood Pressure 137/62 130/67 O2 Sat by Pulse 99 99 Oximetry 01/04/18 01/04/18 01/04/18 01:15 01:30 01:45 Temperature Pulse Rate 92 H 94 H 89 Pulse Rate [ Apical] Respiratory 17 24 17 Rate Respiratory Rate [Left Hand ] Blood Pressure 132/66 140/65 149/68 O2 Sat by Pulse 98 98 99 Oximetry 01/04/18 01/04/18 01/04/18 02:00 02:04 02:15 Temperature Pulse Rate 93 H 93 H 93 H Pulse Rate [ Apical] Respiratory 20 15 Rate Respiratory Rate [Left Hand ] Blood Pressure 129/61 129/61 132/61 O2 Sat by Pulse 99 99 Oximetry 01/04/18 01/04/18 01/04/18 02:30 02:45 03:00 Temperature Pulse Rate 94 H 97 H 95 H Pulse Rate [ Apical] Respiratory 15 14 16 Rate Respiratory Rate [Left Hand ] Blood Pressure 132/61 135/63 127/63 O2 Sat by Pulse 98 99 98 Oximetry 01/04/18 01/04/18 01/04/18 03:15 03:30 03:42 Temperature Pulse Rate 95 H 93 H 94 H Pulse Rate [ Apical] Respiratory 16 20 18 Rate Respiratory Rate [Left Hand ] Blood Pressure 132/72 132/72 116/72 O2 Sat by Pulse 99 99 99 Oximetry 01/04/18 01/04/18 01/04/18 03:46 04:00 04:15 Temperature 98.7 F Pulse Rate 93 H 93 H 93 H Pulse Rate [ 88 Apical] Respiratory 12 16 11 L Rate Respiratory Rate [Left Hand ] Blood Pressure 149/97 162/105 171/103 O2 Sat by Pulse 97 Oximetry 01/04/18 01/04/18 01/04/18 04:30 04:45 05:00 Temperature Pulse Rate 88 Pulse Rate [ Apical] Respiratory Rate Respiratory Rate [Left Hand ] Blood Pressure 202/119 181/96 141/115 O2 Sat by Pulse Oximetry 01/04/18 01/04/18 01/04/18 05:15 05:30 05:45 Temperature Pulse Rate 91 H 88 90 Pulse Rate [ Apical] Respiratory 19 21 26 H Rate Respiratory Rate [Left Hand ] Blood Pressure 145/72 125/69 142/65 O2 Sat by Pulse 97 97 95 Oximetry 01/04/18 01/04/18 01/04/18 06:00 06:12 06:29 Temperature Pulse Rate 90 77 80 Pulse Rate [ Apical] Respiratory 36 H Rate Respiratory Rate [Left Hand ] Blood Pressure 139/66 138/66 130/56 O2 Sat by Pulse 95 Oximetry 01/04/18 01/04/18 07:48 08:00 Temperature 98.9 F Pulse Rate Pulse Rate [ Apical] Respiratory Rate Respiratory Rate [Left Hand ] Blood Pressure O2 Sat by Pulse 95 Oximetry - Lab 01/01/18 15:46 01/04/18 05:01 Most recent lab results Calcium 8.7 mg/dL (8.4-10.2) 01/04/18 05:01
[2018-01-04] MEDS ORDERED: CATAPRES-TTS PATCH TD SCH (10:00)
--- NOTE | 2018-01-04 10:23 | Progress Note ---
Subjective Date of service: 01/04/18 Principal diagnosis: ckd 3 Interval history: Follow-up visit, denies cp at present Echo moderate concentric LVH with preserved systolic function EF 60-65% HTN improving (1) Uncontrolled hypertension Current Visit: Yes Status: Acute Plan to address problem: need to optimize BP, will continue to titrate meds as needed. Objective Vital Signs Temp Pulse Pulse Resp Resp BP Pulse Ox 01/04/18 08:00 98.9 F 01/04/18 07:48 95 01/04/18 06:29 80 130/56 01/04/18 06:12 77 138/66 01/04/18 06:00 90 36 H 139/66 95 01/04/18 05:45 90 26 H 142/65 95 01/04/18 05:30 88 21 125/69 97 01/04/18 05:15 91 H 19 145/72 97 01/04/18 05:00 88 141/115 01/04/18 04:45 181/96 01/04/18 04:30 202/119 01/04/18 04:15 93 H 11 L 171/103 01/04/18 04:00 98.7 F 93 H 88 16 162/105 97 01/04/18 03:46 93 H 12 149/97 01/04/18 03:42 94 H 18 116/72 99 01/04/18 03:30 93 H 20 132/72 99 01/04/18 03:15 95 H 16 132/72 99 01/04/18 03:00 95 H 16 127/63 98 01/04/18 02:45 97 H 14 135/63 99 01/04/18 02:30 94 H 15 132/61 98 01/04/18 02:15 93 H 15 132/61 99 01/04/18 02:04 93 H 129/61 01/04/18 02:00 93 H 20 129/61 99 01/04/18 01:45 89 17 149/68 99 01/04/18 01:30 94 H 24 140/65 98 01/04/18 01:15 92 H 17 132/66 98 01/04/18 01:01 94 H 01/04/18 01:00 94 H 13 130/67 99 01/04/18 00:45 95 H 23 137/62 99 01/04/18 00:30 98 H 26 H 139/61 100 01/04/18 00:15 101 H 24 132/63 99 01/04/18 00:10 94 H 20 98 01/04/18 00:00 99.1 F 112 H 22 127/62 01/03/18 23:48 108 H 18 130/61 98 01/03/18 23:45 107 H 12 120/54 99 01/03/18 23:30 106 H 15 150/78 100 01/03/18 23:15 104 H 20 135/57 99 01/03/18 23:00 106 H 14 147/66 98 01/03/18 22:46 101 H 22 150/78 98 01/03/18 22:36 97 H 20 154/75 98 01/03/18 22:30 95 H 22 154/75 95 01/03/18 22:15 109 H 24 173/78 96 01/03/18 22:14 111 H 180/75 01/03/18 22:13 111 H 180/75 01/03/18 22:00 114 H 29 H 19 180/75 97 01/03/18 21:46 123 H 13 179/106 100 01/03/18 21:30 112 H 10 L 167/92 97 01/03/18 21:15 111 H 20 169/72 96 01/03/18 21:00 109 H 23 175/69 95 01/03/18 20:45 111 H 22 152/79 95 01/03/18 20:30 105 H 17 173/71 98 01/03/18 20:00 98.0 F 108 H 23 158/75 99 01/03/18 19:30 107 H 14 179/71 99 01/03/18 19:00 107 H 13 170/75 98 01/03/18 18:47 104 H 158/77 01/03/18 18:30 102 H 22 194/81 98 01/03/18 18:15 102 H 14 194/81 98 01/03/18 18:00 100 H 13 171/84 98 01/03/18 17:45 98 H 15 169/75 98 01/03/18 17:30 98 H 25 H 181/81 97 01/03/18 17:15 92 H 21 181/81 95 01/03/18 17:00 101 H 13 197/100 98 01/03/18 16:45 103 H 15 188/96 99 01/03/18 16:30 106 H 10 L 186/90 98 01/03/18 16:15 117 H 17 192/138 98 01/03/18 16:00 98.1 F 102 H 89 26 H 186/81 97 01/03/18 15:45 112 H 20 175/85 98 01/03/18 15:30 94 H 17 163/82 98 01/03/18 15:17 95 H 170/79 01/03/18 15:15 98 H 15 168/84 98 01/03/18 15:14 98 H 170/70 01/03/18 15:00 97 H 15 170/78 98 01/03/18 14:45 102 H 18 160/80 98 01/03/18 14:30 101 H 13 157/75 98 01/03/18 14:16 102 H 13 169/81 98 01/03/18 14:00 101 H 16 169/81 98 01/03/18 13:45 103 H 15 164/80 97 01/03/18 13:30 107 H 10 L 154/78 97 01/03/18 13:15 102 H 20 170/83 97 01/03/18 13:00 100 H 18 185/80 97 01/03/18 12:45 103 H 18 178/78 94 01/03/18 12:30 100 H 18 175/86 97 01/03/18 12:15 97 H 12 165/84 98 01/03/18 12:00 97.7 F 97 H 103 H 16 166/138 98 01/03/18 11:46 103 H 15 209/93 96 01/03/18 11:41 113 H 201/95 01/03/18 11:30 113 H 15 201/95 98 01/03/18 11:16 109 H 13 201/106 98 01/03/18 11:00 112 H 15 201/106 97 01/03/18 10:46 115 H 22 206/108 97 01/03/18 10:30 111 H 13 206/108 98 - Physical Examination General: No Apparent Distress HEENT: Positive: PERRL Neck: Positive: neck supple Cardiac: Positive: Reg Rate and Rhythm, S1/S2 Lungs: Positive: Normal Exam Neuro: Positive: Grossly Intact Abdomen: Positive: Soft Skin: Positive: Clear Extremities: Absent: edema - Labs and Meds Comprehensive Metabolic Panel 01/04/18 Range/Units 05:01 Sodium 138 (137-145) mmol/L Potassium 3.9 (3.6-5.0) mmol/L Chloride 101.7 (98-107) mmol/L Carbon Dioxide 22 (22-30) mmol/L BUN 20 H (7-17) mg/dL Creatinine 2.6 H (0.7-1.2) mg/dL Glucose 231 H (65-100) mg/dL Calcium 8.7 (8.4-10.2) mg/dL
--- NOTE | 2018-01-04 11:41 | Progress Note ---
Assessment and Plan Assessment and plan: Accelerated hypertension. Patient has been weaned off of Cardene drip. Neurology suggests getting systolic blood pressures in the 120 range. New-onset seizure disorder. EEG reveals no epileptiform activity.. Neurology following. Continue AEDs. Follow-up MRI. This may represent posterior reversible encephalopathy syndrome which can include seizures Acute renal failure on CKD. Patient was noted to have a creatinine of 1.5 on 01/2017. Continue to monitor BMP closely. Consider nephrology consultation. Renal ultrasound reveals mildly increased renal echogenicity likely indicating underlying medical renal disease. Diastolic heart failure. Compensated. EF noted be 60-65%. Mild pulmonary hypertension. Disposition. Patient will be transferred to the floor. History Interval history: No new issues overnight. Hospitalist Physical - Constitutional Vitals: Temp Pulse Resp BP Pulse Ox 98.9 F 80 36 H 130/56 95 01/04/18 08:00 01/04/18 06:29 01/04/18 06:00 01/04/18 06:29 01/04/18 07:48 General appearance: Present: no acute distress - EENT Eyes: Present: PERRL, EOM intact ENT: hearing intact, clear oral mucosa, dentition normal - Neck Neck: Present: supple, normal ROM - Respiratory Respiratory effort: normal Respiratory: bilateral: CTA - Cardiovascular Rhythm: regular Heart Sounds: Present: S1 & S2. Absent: gallop, rub - Extremities Extremities: no ischemia, No edema, Full ROM - Abdominal General gastrointestinal: soft, non-tender, non-distended, normal bowel sounds - Integumentary Integumentary: Present: clear, warm, dry - Neurologic Neurologic: CNII-XII intact, moves all extremities Results - Labs CBC & Chem 7: 01/01/18 15:46 01/04/18 05:01 Labs: Laboratory Last Values WBC 8.1 K/mm3 (4.5-11.0) 01/01/18 15:46 RBC 3.79 M/mm3 (3.65-5.03) 01/01/18 15:46 Hgb 10.4 gm/dl (10.1-14.3) 01/01/18 15:46 Hct 31.6 % (30.3-42.9) 01/01/18 15:46 MCV 83 fl (79-97) 01/01/18 15:46 MCH 28 pg (28-32) 01/01/18 15:46 MCHC 33 % (30-34) 01/01/18 15:46 RDW 15.4 % (13.2-15.2) H 01/01/18 15:46 Plt Count 252 K/mm3 (140-440) 01/01/18 15:46 Lymph % (Auto) 15.9 % (13.4-35.0) 01/01/18 15:46 [place]ruff % (Auto) 9.3 % (0.0-7.3) H 01/01/18 15:46 Eos % (Auto) 0.7 % (0.0-4.3) 01/01/18 15:46 Baso % (Auto) 0.4 % (0.0-1.8) 01/01/18 15:46 Lymph # 1.3 K/mm3 (1.2-5.4) 01/01/18 15:46 Woodruff # 0.8 K/mm3 (0.0-0.8) 01/01/18 15:46 Eos # 0.1 K/mm3 (0.0-0.4) 01/01/18 15:46 Baso # 0.0 K/mm3 (0.0-0.1) 01/01/18 15:46 Seg Neutrophils % 73.7 % (40.0-70.0) H 01/01/18 15:46 Seg Neutrophils # 6.0 K/mm3 (1.8-7.7) 01/01/18 15:46 PT 14.3 Sec. (12.2-14.9) 01/01/18 15:46 INR 1.06 (0.87-1.13) 01/01/18 15:46 APTT 26.7 Sec. (24.2-36.6) 01/01/18 15:46 Thrombin Time 16.2 Sec. (15.1-19.6) 01/01/18 15:46 Sodium 138 mmol/L (137-145) 01/04/18 05:01 Potassium 3.9 mmol/L (3.6-5.0) 01/04/18 05:01 Chloride 101.7 mmol/L (98-107) 01/04/18 05:01 Carbon Dioxide 22 mmol/L (22-30) 01/04/18 05:01 Anion Gap 18 mmol/L 01/04/18 05:01 BUN 20 mg/dL (7-17) H 01/04/18 05:01 Creatinine 2.6 mg/dL (0.7-1.2) H 01/04/18 05:01 Estimated GFR 23 ml/min 01/04/18 05:01 BUN/Creatinine Ratio 8 % 01/04/18 05:01 Glucose 231 mg/dL (65-100) H 01/04/18 05:01 POC Glucose 186 (70-105) H 01/02/18 00:07 Calcium 8.7 mg/dL (8.4-10.2) 01/04/18 05:01 Total Bilirubin 0.30 mg/dL (0.1-1.2) 01/01/18 15:46 Direct Bilirubin < 0.2 mg/dL (0-0.2) 01/01/18 15:46 Indirect Bilirubin 0.1 mg/dL 01/01/18 15:46 AST 11 units/L (5-40) 01/01/18 15:46 ALT 8 units/L (7-56) 01/01/18 15:46 Alkaline Phosphatase 121 units/L (35-129) 01/01/18 15:46 Total Creatine Kinase 94 units/L (30-135) 01/01/18 15:46 CK-MB (CK-2) 3.1 ng/mL (0.0-4.0) 01/01/18 15:46 CK-MB (CK-2) Rel Index 3.2 (0-4) 01/01/18 15:46 Troponin T 0.037 ng/mL (0.00-0.029) H 01/01/18 22:55 NT-Pro-B Natriuret Pep 3449 pg/mL (0-900) H 01/01/18 15:46 Total Protein 7.0 g/dL (6.3-8.2) 01/01/18 15:46 Albumin 3.5 g/dL (3.9-5) L 01/01/18 15:46 Albumin/Globulin Ratio 1.0 % 01/01/18 15:46 Triglycerides 97 mg/dL (2-149) 01/01/18 15:46 Cholesterol 152 mg/dL (50-199) 01/01/18 15:46 LDL Cholesterol Direct 69 mg/dL (50-130) 01/01/18 15:46 HDL Cholesterol 77 mg/dL (40-59) H 01/01/18 15:46 Cholesterol/HDL Ratio 1.97 % 01/01/18 15:46 Urine Color Yellow (Yellow) 01/01/18 Unknown Urine Turbidity Clear (Clear) 01/01/18 Unknown Urine pH 6.0 (5.0-7.0) 01/01/18 Unknown Ur Specific [place] 1.012 (1.003-1.030) 01/01/18 Unknown Urine Protein >500 mg/dL (Negative) 01/01/18 Unknown Urine Glucose (UA) 50 mg/dL (Negative) 01/01/18 Unknown Urine Ketones Neg mg/dL (Negative) 01/01/18 Unknown Urine Blood Sm (Negative) 01/01/18 Unknown Urine Nitrite Neg (Negative) 01/01/18 Unknown Urine Bilirubin Neg (Negative) 01/01/18 Unknown Urine Urobilinogen < 2.0 mg/dL (<2.0) 01/01/18 Unknown Ur Leukocyte Esterase Neg (Negative) 01/01/18 Unknown Urine WBC (Auto) 1.0 /HPF (0.0-6.0) 01/01/18 Unknown Urine RBC (Auto) 4.0 /HPF (0.0-6.0) 01/01/18 Unknown U Epithel Cells (Auto) < 1.0 /HPF (0-13.0) 01/01/18 Unknown Hyaline Casts 1 /LPF 01/01/18 Unknown Urine Mucus Few /HPF 01/01/18 Unknown
[2018-01-04] MEDS: PROCARDIA XL PO SCH ×2 (12:06→22:34)
[2018-01-04] MEDS: NORMODYNE PO SCH (12:07)
[2018-01-04] MEDS: CARDURA PO SCH ×2 (12:09→22:33)
[2018-01-04] MEDS: KEPPRA PO SCH ×2 (12:09→22:33)
[2018-01-04] MEDS: VITAMIN B-6 PO SCH (12:11)
[2018-01-04] MEDS: APRESOLINE PO SCH ×2 (14:24→22:35)
[2018-01-04] MEDS: SODIUM CHLORIDE FLUSH SYRINGE 10 ML IV SCH ×2 (14:26→22:36)
--- NOTE | 2018-01-04 15:15 | Progress Note ---
Assessment and Plan Hypertensive emergency. Witnessed seizure, possibly related to hypertensive emergency. Acute encephalopathy, possibly a combination of hypertensive encephalopathy as well as postictal state. Morbid obesity. H/O YAYO (Non compliant with CPAP) Chronic kidney disease, possible acute element. Cardiomyopathy with cardiomegaly. Pulmonary HTN History of hypertension. Mild hyponatremia. Hyperglycemia. Elevated cardiac enzymes (NSTEMI) - continue scheduled IV hydralazine while up-titrating oral antihypertensives - supplemental oxygen for sats < 90% - counselled improved BIPAP use while asleep - azotemia per nephrology - neurology evaluation ongoing - continue Keppra for now - cardiology work-up ongoing - resume nicardipine drip if systolics remain > 180 mmHg on current regimen - weight loss counselled - continue GI & VTE prophylaxis - Pulmonary HTN may be related to YAYO; will need outpatient w/up - continue orther care per attending / other consultants ... re-evaluate in am & prn Subjective Date of service: 01/04/18 Principal diagnosis: Hypertensive emergency; Seizures; Acute encephalopathy; Pulm HTN; YAYO Interval history: Patient is seen today for: Hypertensive emergency; Seizures; Acute encephalopathy; Morbid obesity; H/O YAYO (Non compliant with CPAP); CKD; Pulmonary HTN Seen and examined at bedside; 24hour events reviewed; nursing and respiratory care staff consulted; no adverse overnight events reported to me; resting in bed ; BP's still on high side; off cardene drip; No N/V/F/C; denies acute chest pains Objective Vital Signs - 12hr 01/04/18 01/04/18 01/04/18 03:15 03:30 03:42 Temperature Pulse Rate 95 H 93 H 94 H Pulse Rate [ Apical] Respiratory 16 20 18 Rate Blood Pressure 132/72 132/72 116/72 O2 Sat by Pulse 99 99 99 Oximetry 01/04/18 01/04/18 01/04/18 03:46 04:00 04:15 Temperature 98.7 F Pulse Rate 93 H 93 H 93 H Pulse Rate [ 88 Apical] Respiratory 12 16 11 L Rate Blood Pressure 149/97 162/105 171/103 O2 Sat by Pulse 97 Oximetry 01/04/18 01/04/18 01/04/18 04:30 04:45 05:00 Temperature Pulse Rate 88 Pulse Rate [ Apical] Respiratory Rate Blood Pressure 202/119 181/96 141/115 O2 Sat by Pulse Oximetry 01/04/18 01/04/18 01/04/18 05:15 05:30 05:45 Temperature Pulse Rate 91 H 88 90 Pulse Rate [ Apical] Respiratory 19 21 26 H Rate Blood Pressure 145/72 125/69 142/65 O2 Sat by Pulse 97 97 95 Oximetry 01/04/18 01/04/18 01/04/18 06:00 06:12 06:15 Temperature Pulse Rate 90 77 74 Pulse Rate [ Apical] Respiratory 36 H 18 Rate Blood Pressure 139/66 138/66 130/56 O2 Sat by Pulse 95 88 Oximetry 01/04/18 01/04/18 01/04/18 06:29 06:30 06:45 Temperature Pulse Rate 80 95 H 86 Pulse Rate [ Apical] Respiratory 16 16 Rate Blood Pressure 130/56 118/62 109/63 O2 Sat by Pulse 96 95 Oximetry 01/04/18 01/04/18 01/04/18 07:00 07:15 07:30 Temperature Pulse Rate 89 91 H 93 H Pulse Rate [ Apical] Respiratory 17 13 17 Rate Blood Pressure 115/64 107/62 124/63 O2 Sat by Pulse 93 93 96 Oximetry 01/04/18 01/04/18 01/04/18 07:45 07:48 08:00 Temperature 98.9 F Pulse Rate 91 H 92 H Pulse Rate [ Apical] Respiratory 33 H 18 Rate Blood Pressure 122/60 120/66 O2 Sat by Pulse 91 95 96 Oximetry 01/04/18 01/04/18 01/04/18 08:15 08:30 08:45 Temperature Pulse Rate 90 91 H 103 H Pulse Rate [ Apical] Respiratory 18 20 13 Rate Blood Pressure 116/66 120/63 121/73 O2 Sat by Pulse 97 Oximetry 01/04/18 01/04/18 01/04/18 09:00 09:15 09:30 Temperature Pulse Rate 100 H 100 H 99 H Pulse Rate [ Apical] Respiratory 17 16 15 Rate Blood Pressure 124/74 119/73 110/81 O2 Sat by Pulse 96 97 97 Oximetry 01/04/18 01/04/18 01/04/18 09:45 10:00 10:15 Temperature Pulse Rate 99 H 98 H 98 H Pulse Rate [ Apical] Respiratory 15 16 13 Rate Blood Pressure 116/66 124/67 125/65 O2 Sat by Pulse 98 98 96 Oximetry 01/04/18 01/04/18 01/04/18 10:30 10:45 11:00 Temperature Pulse Rate 99 H 98 H 98 H Pulse Rate [ Apical] Respiratory 23 14 21 Rate Blood Pressure 139/64 148/68 121/70 O2 Sat by Pulse 97 97 97 Oximetry 01/04/18 01/04/18 01/04/18 11:15 11:30 11:45 Temperature Pulse Rate 97 H 98 H 96 H Pulse Rate [ Apical] Respiratory 17 17 18 Rate Blood Pressure 139/66 139/66 145/78 O2 Sat by Pulse 96 97 97 Oximetry 01/04/18 01/04/18 01/04/18 12:00 12:07 12:09 Temperature 99.1 F Pulse Rate 98 H 98 H 97 H Pulse Rate [ Apical] Respiratory 18 Rate Blood Pressure 155/88 155/88 155/88 O2 Sat by Pulse 96 Oximetry 01/04/18 01/04/18 01/04/18 12:16 12:22 12:30 Temperature Pulse Rate 96 H 97 H 99 H Pulse Rate [ Apical] Respiratory 25 H 24 Rate Blood Pressure 168/87 168/87 168/84 O2 Sat by Pulse 97 97 Oximetry 01/04/18 01/04/18 01/04/18 12:45 13:00 13:15 Temperature Pulse Rate 100 H 96 H 94 H Pulse Rate [ Apical] Respiratory 25 H 21 13 Rate Blood Pressure 169/87 178/79 162/78 O2 Sat by Pulse 95 97 97 Oximetry 01/04/18 01/04/18 01/04/18 13:30 13:45 14:00 Temperature Pulse Rate 93 H 96 H 93 H Pulse Rate [ Apical] Respiratory 18 20 24 Rate Blood Pressure 176/79 160/85 173/80 O2 Sat by Pulse 96 94 94 Oximetry 01/04/18 01/04/18 01/04/18 14:15 14:25 14:30 Temperature Pulse Rate 92 H 94 H Pulse Rate [ Apical] Respiratory 18 13 Rate Blood Pressure 162/81 162/81 162/81 O2 Sat by Pulse 93 97 Oximetry 01/04/18 01/04/18 14:45 15:00 Temperature Pulse Rate 97 H 97 H Pulse Rate [ Apical] Respiratory 23 24 Rate Blood Pressure 149/76 148/72 O2 Sat by Pulse 97 96 Oximetry Constitutional: no acute distress, alert, other (Obese AAF, normocephalic and atraumatic with mildly increased respiratory effort) Eyes: non-icteric ENT: oropharynx moist, other (Mallampati 4) Neck: supple, no lymphadenopathy, no JVD, other (large neck circumference) Effort: mildly labored Ascultation: Bilateral: clear, diminished breath sounds (bases) Percussion: Bilateral: not dull Cardiovascular: regular rate and rhythm, other (No R/M) Gastrointestinal: normoactive bowel sounds, soft, non-tender, non-distended, other (No HSM) Integumentary: normal Extremities: no cyanosis, no edema, pulses normal, no ischemia or petechiae Neurologic: normal mental status, non-focal exam, pupils equal and round, motor strength normal and Psychiatric: mood appropriate, affect normal CBC and BMP: 01/01/18 15:46 01/06/18 05:38 ABG, PT/INR, D-dimer: PT/INR, D-dimer PT 14.3 Sec. (12.2-14.9) 01/01/18 15:46 INR 1.06 (0.87-1.13) 01/01/18 15:46 Abnormal lab findings: Abnormal Labs 01/01/18 01/01/18 01/01/18 13:43 15:46 15:46 RDW 15.4 H Tucker % (Auto) 9.3 H Seg Neutrophils % 73.7 H Sodium 136 L BUN 24 H Creatinine 1.9 H Glucose 221 H POC Glucose 212 H Troponin T 0.039 H NT-Pro-B Natriuret Pep Albumin HDL Cholesterol 77 H 01/01/18 01/01/18 01/01/18 15:46 19:45 22:55 RDW Tucker % (Auto) Seg Neutrophils % Sodium BUN Creatinine Glucose POC Glucose Troponin T 0.045 H 0.037 H NT-Pro-B Natriuret Pep 3449 H Albumin 3.5 L HDL Cholesterol 01/02/18 01/04/18 00:07 05:01 RDW Tucker % (Auto) Seg Neutrophils % Sodium BUN 20 H Creatinine 2.6 H Glucose 231 H POC Glucose 186 H Troponin T NT-Pro-B Natriuret Pep Albumin HDL Cholesterol Allied health notes reviewed: nursing
[2018-01-04] MEDS ORDERED: AFLURIA QUAD 2018-2019 SYRINGE IM ONE (18:41)
[2018-01-05] MEDS: NORMODYNE PO SCH ×4 (00:27→23:26)
[2018-01-05] MEDS: FIORICET PO PRN ×2 (04:39→23:05)
[2018-01-05] MEDS: BIDIL 20/37.5MG PO SCH ×3 (05:20→23:04)
[2018-01-05 07:03] LABS: Calcium 8.4 mg/dL (8.4-10.2)
[2018-01-05] MEDS: APRESOLINE PO SCH ×3 (08:34→21:30)
--- NOTE | 2018-01-05 08:56 | Progress Note ---
Assessment and Plan Impression: * ELLEN on ckd stage 3--last seen in office 12/31/2017--cr 3.1 * seizure disorder * gout * Acc HTN Plan: * has advanced ckd due to HTN * Blood pressure much better . Continue current bp meds * Continue to hold arb until cr stable * strict i/os * daily lytes * no indication for coal sampler * neuro/cards following * Ok to discharge from renal standpoint with close outpatient follow up Subjective Date of service: 01/05/18 Principal diagnosis: Hypertensive emergency; Seizures; Acute encephalopathy; Pulm HTN; YAYO Interval history: patient feels well today . Wants to go home . Objective - Vital Signs Vital signs: Vital Signs - 12hr 01/04/18 01/04/18 01/04/18 22:33 22:34 22:54 Temperature Pulse Rate 94 H 100 H Respiratory 18 20 Rate Blood Pressure 141/54 O2 Sat by Pulse 98 Oximetry 01/04/18 01/05/18 01/05/18 23:58 00:27 04:24 Temperature 98.3 F 98.1 F Pulse Rate 100 H 100 H 89 Respiratory 18 18 Rate Blood Pressure 118/56 114/56 136/68 O2 Sat by Pulse 96 96 Oximetry 01/05/18 01/05/18 01/05/18 04:39 05:19 05:20 Temperature Pulse Rate 92 H 92 H Respiratory 18 Rate Blood Pressure 143/67 143/67 O2 Sat by Pulse 94 Oximetry 01/05/18 08:00 Temperature 99.3 F Pulse Rate 86 Respiratory 16 Rate Blood Pressure 133/65 O2 Sat by Pulse 98 Oximetry - General Appearance General appearance: well-developed, well-nourished, appears stated age EENT: PERRL, mucous membranes moist Neck: no JVD, no thyromegaly, no carotid bruit, supple Respiratory: Present: Clear to Ascultation Cardiology: regular, normal heart rate, S1S2, no murmurs Gastrointestinal: normal, normoactive bowel sounds Integumentary: no rash, other (no edema ) - Lab 01/01/18 15:46 01/05/18 05:42 Most recent lab results Calcium 8.4 mg/dL (8.4-10.2) 01/05/18 05:42
[2018-01-05] MEDS ORDERED: NORMODYNE PO SCH (10:00)
[2018-01-05] MEDS: KEPPRA PO SCH ×2 (10:44→23:04)
[2018-01-05] MEDS: CARDURA PO SCH ×2 (10:44→23:04)
[2018-01-05] MEDS: PROCARDIA XL PO SCH ×2 (10:46→23:03)
[2018-01-05] MEDS: SODIUM CHLORIDE FLUSH SYRINGE 10 ML IV SCH ×2 (10:46→23:06)
[2018-01-05] MEDS: VITAMIN B-6 PO SCH (11:01)
[2018-01-05] MEDS ORDERED: AFLURIA QUAD 2018-2019 SYRINGE IM ONE (12:00)
--- NOTE | 2018-01-05 12:05 | Discharge Summary ---
Providers - Providers Date of Admission: 01/01/18 16:41 Date of discharge: 01/05/18 Attending physician: TIN MADERA 01/01/18 Consult to Cardiac Rehabilitation [CONS] Routine Reason For Exam: Phase I 01/01/18 16:47 Consult to Physician [CONS] Routine Comment: Consulting Provider: MASON ROSALES Physician Instructions: Reason For Exam: chf 01/01/18 19:36 Consult to Physician [CONS] Routine Comment: Consulting Provider: NAFISA FONG Physician Instructions: Reason For Exam: critical care 01/02/18 12:31 Consult to Physician [CONS] Routine Comment: Consulting Provider: ZEUS SULLIVAN Physician Instructions: Reason For Exam: new sz 01/02/18 12:32 Consult to Physician [CONS] Routine Comment: Consulting Provider: MARISSA HERNANDEZ Physician Instructions: Reason For Exam: ARF Primary care physician: WELT MAKER Hospitalization Reason for admission: sz Condition: Stable Hospital course: This 57-year-old female presents to the emergency department after having a seizure at work the day prior to admission but recalls no warning and has no memory of the event until she woke up in a room here at the hospital. She recalls bitemporal headache starting the day prior to admission without nausea but with some photophobia though no phonophobia. She had no visual changes with the headache. She has had no difficulties with swallowing. The patient was admitted to the hospital with a diagnosis of hypertensive encephalopathy versus posterior reversible encephalopathy syndrome with secondary seizure. Patient was initially treated with Cardene drip and then switched to by mouth antihypertensive medications. The patient's blood pressure normalized and she is doing well. Unfortunately MRI has not been done. Patient will discharge after MRI if negative. EEG showed no epileptiform activity. Dedicated discharged on 32 minutes. Disposition: - TO HOME OR SELFCARE Time spent for discharge: 32 - Discharge Diagnoses (1) Encephalopathy Status: Acute (2) Generalized seizure Status: Acute (3) Hypertensive crisis Status: Acute (4) Uncontrolled hypertension Status: Acute Core Measure Documentation - Palliative Care Palliative Care/ Comfort Measures: Not Applicable - Core Measures Any of the following diagnoses?: none Exam - Constitutional Vitals: Temp Pulse Resp BP Pulse Ox 99.3 F 86 16 133/65 98 01/05/18 08:00 01/05/18 08:00 01/05/18 08:00 01/05/18 08:00 01/05/18 08:00 General appearance: Present: no acute distress, well-nourished - EENT Eyes: Present: PERRL ENT: hearing intact, clear oral mucosa - Neck Neck: Present: supple, normal ROM - Respiratory Respiratory effort: normal Respiratory: bilateral: CTA - Cardiovascular Heart Sounds: Present: S1 & S2. Absent: rub, click - Extremities Extremities: pulses symmetrical, No edema Peripheral Pulses: within normal limits - Abdominal General gastrointestinal: Present: soft, non-tender, non-distended, normal bowel sounds Female genitourinary: Present: normal - Integumentary Integumentary: Present: clear, warm, dry - Musculoskeletal Musculoskeletal: gait normal, strength equal bilaterally - Psychiatric Psychiatric: appropriate mood/affect, intact judgment & insight - Neurologic Neurologic: CNII-XII intact, moves all extremities Plan Activity: no restrictions Weight Bearing Status: Full Weight Bearing Diet: low cholesterol, low salt Follow up with: PRIMARY CARE, [Primary Care Provider] - 3-5 Days ZEUS SULLIVAN MD [Staff Physician] - 7 Days MASON ROSALES MD [Staff Physician] - 7 Days Prescriptions: Butalb/Acetamin/Caff 50-325-40 [Fioricet] 2 tab PO Q6H PRN #15 tablet PRN Reason: Headache cloNIDine-TTS PATCH [Catapres-Tts Patch] 0.3 mg TD Walker #6 patch Doxazosin [Cardura] 2 mg PO BID #60 tablet hydrALAZINE [Apresoline TAB] 100 mg PO TID #90 tab Isosorb Dinit/Hydralazine [Bidil 20/37.5MG] 1 each PO Q8HR #90 tablet Labetalol [Normodyne TAB] 400 mg PO BID #60 tablet levETIRAcetam [Keppra TAB] 1,000 mg PO BID #60 tablet NIFEdipine XL [Procardia Xl] 90 mg PO Q12HR #60 tablet Nitroglycerin [Nitrostat] 0.4 mg SL Q5M PRN #15 tablet PRN Reason: Chest Pain oxyCODONE /ACETAMINOPHEN [Percocet 5/325 mg] 1 - 2 tab PO Q6HR PRN #14 tablet PRN Reason: Pain Pyridoxine [Vitamin B-6] 200 mg PO QDAY #30 tablet
--- NOTE | 2018-01-05 13:40 | Progress Note ---
Assessment and Plan Hypertensive emergency. Witnessed seizure, possibly related to hypertensive emergency. Acute encephalopathy, possibly a combination of hypertensive encephalopathy as well as postictal state. Morbid obesity. H/O YAYO (Non compliant with CPAP) Chronic kidney disease, possible acute element. Cardiomyopathy with cardiomegaly. Pulmonary HTN History of hypertension. Mild hyponatremia. Hyperglycemia. Elevated cardiac enzymes (NSTEMI) - continue up-titrating oral antihypertensives - supplemental oxygen for sats < 90% - counselled improved BIPAP use while asleep - azotemia per nephrology - neurology evaluation ongoing - continue Keppra for now - cardiology work-up ongoing - weight loss counselled - continue GI & VTE prophylaxis - Pulmonary HTN may be related to YAYO; will need outpatient w/up - continue orther care per attending / other consultants ... re-evaluate in am & prn Subjective Date of service: 01/05/18 Principal diagnosis: Hypertensive emergency; Seizures; Acute encephalopathy; Pulm HTN; YAYO Interval history: Patient is seen today for: Hypertensive emergency; Seizures; Acute encephalopathy; Morbid obesity; H/O YAYO (Non compliant with CPAP); CKD; Pulmonary HTN Seen and examined at bedside; 24hour events reviewed; nursing and respiratory care staff consulted; no adverse overnight events reported to me; resting in bed ; BP's better controlled; states that she has been using BIPAP qhs as prescribed ; no N/V/F/C Objective Vital Signs - 12hr 01/05/18 01/05/18 01/05/18 04:24 04:39 05:19 Temperature 98.1 F Pulse Rate 89 92 H Respiratory 18 18 Rate Blood Pressure 136/68 143/67 O2 Sat by Pulse 96 94 Oximetry 01/05/18 01/05/18 01/05/18 05:20 08:00 11:48 Temperature 99.3 F 98.5 F Pulse Rate 92 H 86 89 Respiratory 16 20 Rate Blood Pressure 143/67 133/65 113/70 O2 Sat by Pulse 98 97 Oximetry Constitutional: no acute distress, alert, other (Obese AAF, normocephalic and atraumatic with mildly increased respiratory effort) Eyes: non-icteric ENT: oropharynx moist, other (Mallampati 4) Neck: supple, no lymphadenopathy, no JVD, other (large neck circumference) Effort: mildly labored Ascultation: Bilateral: clear, diminished breath sounds (bases) Percussion: Bilateral: not dull Cardiovascular: regular rate and rhythm, other (No R/M) Gastrointestinal: normoactive bowel sounds, soft, non-tender, non-distended, other (No HSM) Integumentary: normal Extremities: no cyanosis, no edema, pulses normal, no ischemia or petechiae Neurologic: normal mental status, non-focal exam, pupils equal and round, motor strength normal and Psychiatric: mood appropriate, affect normal CBC and BMP: 01/01/18 15:46 01/06/18 05:38 ABG, PT/INR, D-dimer: PT/INR, D-dimer PT 14.3 Sec. (12.2-14.9) 01/01/18 15:46 INR 1.06 (0.87-1.13) 01/01/18 15:46 Abnormal lab findings: Abnormal Labs 01/01/18 01/01/18 01/01/18 13:43 15:46 15:46 RDW 15.4 H Towner % (Auto) 9.3 H Seg Neutrophils % 73.7 H Sodium 136 L Carbon Dioxide BUN 24 H Creatinine 1.9 H Glucose 221 H POC Glucose 212 H Troponin T 0.039 H NT-Pro-B Natriuret Pep Albumin HDL Cholesterol 77 H 01/01/18 01/01/18 01/01/18 15:46 19:45 22:55 RDW Towner % (Auto) Seg Neutrophils % Sodium Carbon Dioxide BUN Creatinine Glucose POC Glucose Troponin T 0.045 H 0.037 H NT-Pro-B Natriuret Pep 3449 H Albumin 3.5 L HDL Cholesterol 01/02/18 01/04/18 01/05/18 00:07 05:01 05:42 RDW Towner % (Auto) Seg Neutrophils % Sodium Carbon Dioxide 21 L BUN 20 H 28 H Creatinine 2.6 H 2.9 H Glucose 231 H 222 H POC Glucose 186 H Troponin T NT-Pro-B Natriuret Pep Albumin HDL Cholesterol Allied health notes reviewed: nursing
--- NOTE | 2018-01-05 13:47 | Progress Note ---
Assessment and Plan Seizure Uncontrolled HTN -improved with multiple medications Obesity Echo: moderate concentric LVH with preserved systolic function EF 60-65% Stable cardiac rust. Conservative cardiac management. Subjective Date of service: 01/05/18 Principal diagnosis: Hypertensive emergency; Seizures; Acute encephalopathy; Pulm HTN; YAYO Interval history: Patient is resting in bed comfortably. She has no complaints. Blood pressure is stable at 113/70. Objective Vital Signs Temp Pulse Pulse Pulse Pulse Pulse Pulse 01/05/18 11:48 98.5 F 89 01/05/18 08:00 99.3 F 86 01/05/18 05:20 92 H 01/05/18 05:19 92 H 01/05/18 04:39 01/05/18 04:24 98.1 F 89 01/05/18 00:27 100 H 01/04/18 23:58 98.3 F 100 H 01/04/18 22:54 100 H 01/04/18 22:34 01/04/18 22:33 94 H 01/04/18 20:00 94 H 92 H 94 H 94 H 92 H 94 H 01/04/18 19:46 98.1 F 94 H 01/04/18 16:50 97.9 F 01/04/18 15:31 01/04/18 15:20 96 H 01/04/18 15:10 93 H 01/04/18 15:00 97 H 01/04/18 14:45 97 H 01/04/18 14:30 94 H 01/04/18 14:25 01/04/18 14:15 92 H 01/04/18 14:00 93 H Pulse Resp BP Pulse Ox 01/05/18 11:48 20 113/70 97 01/05/18 08:00 16 133/65 98 01/05/18 05:20 143/67 01/05/18 05:19 143/67 94 01/05/18 04:39 18 01/05/18 04:24 18 136/68 96 01/05/18 00:27 114/56 01/04/18 23:58 18 118/56 96 01/04/18 22:54 20 98 01/04/18 22:34 18 01/04/18 22:33 141/54 01/04/18 20:00 94 H 18 01/04/18 19:46 18 141/54 97 01/04/18 16:50 20 123/64 01/04/18 15:31 141/66 01/04/18 15:20 16 137/72 100 01/04/18 15:10 21 148/72 97 01/04/18 15:00 24 148/72 96 01/04/18 14:45 23 149/76 97 01/04/18 14:30 13 162/81 97 01/04/18 14:25 162/81 01/04/18 14:15 18 162/81 93 01/04/18 14:00 24 173/80 94 - Physical Examination General: No Apparent Distress, Other (obese) HEENT: Positive: PERRL Cardiac: Positive: Reg Rate and Rhythm Lungs: Positive: Decreased Breath Sounds Neuro: Positive: Grossly Intact Extremities: Absent: edema - Labs and Meds Comprehensive Metabolic Panel 01/05/18 Range/Units 05:42 Sodium 137 (137-145) mmol/L Potassium 4.1 (3.6-5.0) mmol/L Chloride 101.6 (98-107) mmol/L Carbon Dioxide 21 L (22-30) mmol/L BUN 28 H (7-17) mg/dL Creatinine 2.9 H (0.7-1.2) mg/dL Glucose 222 H (65-100) mg/dL Calcium 8.4 (8.4-10.2) mg/dL - Allied health notes Allied health notes reviewed: nursing
--- NOTE | 2018-01-05 18:11 | Event Note ---
Date: 01/05/18 Asked to remove RIJ non-cuffed tunneled PICC line. Stitch cut, and line removed without issue. Tip intact. Gentle pressure applied to base of the right neck. Hemostasis achieved. Bandages applied. D/c instructions given at the bedside. Explained what the pt would need to do in the event she began to bleed from the exit site. Pt can f/u in our office as an outpt as needed.
[2018-01-06] MEDS: BIDIL 20/37.5MG PO SCH ×2 (06:03→14:48)
[2018-01-06 06:51] LABS: Calcium 8.5 mg/dL (8.4-10.2)
--- NOTE | 2018-01-06 09:11 | Progress Note ---
Assessment and Plan Impression: * ELLEN on ckd stage 3--last seen in office 12/31/2017--cr 3.1 * seizure disorder * gout * Acc HTN Plan: * has advanced ckd due to HTN. Serum creatinine noted to be better today * Blood pressure much better . 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 Wants to go home . Objective - Vital Signs Vital signs: Vital Signs - 12hr 01/05/18 01/05/18 01/05/18 22:50 23:04 23:05 Temperature Pulse Rate 98 H Pulse Rate [ 98 H Apical] Respiratory 18 18 Rate Respiratory Rate [Head] Blood Pressure 136/70 Blood Pressure [Left] O2 Sat by Pulse 96 Oximetry 01/05/18 01/05/18 01/06/18 23:26 23:40 00:05 Temperature 98.3 F Pulse Rate 98 H 102 H Pulse Rate [ Apical] Respiratory 18 18 Rate Respiratory 18 Rate [Head] Blood Pressure 136/70 147/65 Blood Pressure [Left] O2 Sat by Pulse 97 Oximetry 01/06/18 01/06/18 01/06/18 04:00 06:03 08:15 Temperature 98.2 F Pulse Rate 91 H 91 H 103 H Pulse Rate [ Apical] Respiratory 18 18 Rate Respiratory Rate [Head] Blood Pressure 133/73 124/68 Blood Pressure 133/73 [Left] O2 Sat by Pulse 96 95 Oximetry - General Appearance General appearance: well-developed, well-nourished, appears stated age EENT: PERRL, mucous membranes moist Neck: no JVD, no thyromegaly, no carotid bruit, supple Respiratory: Present: Clear to Ascultation Cardiology: regular, normal heart rate, S1S2, no murmurs Gastrointestinal: normal, normoactive bowel sounds Integumentary: no rash, other (no edema ) - Lab 01/01/18 15:46 01/06/18 05:38 Most recent lab results Calcium 8.5 mg/dL (8.4-10.2) 01/06/18 05:38
[2018-01-06] MEDS: APRESOLINE PO SCH ×2 (11:38→14:48)
[2018-01-06] MEDS: NORMODYNE PO SCH (11:38)
[2018-01-06] MEDS: CARDURA PO SCH (11:38)
[2018-01-06] MEDS: VITAMIN B-6 PO SCH (11:38)
[2018-01-06] MEDS: PROCARDIA XL PO SCH (11:39)
[2018-01-06] MEDS: KEPPRA PO SCH (11:39)
--- NOTE | 2018-01-06 12:19 | Magnetic Resonance Report ---
MRI OF THE BRAIN WITHOUT CONTRAST: HISTORY: Hypertensive encephalopathy PROCEDURE: Multiplanar, multisequence MR imaging of the brain without IV contrast was performed. FINDINGS: Mild nonspecific T2 signal abnormalities are identified in the periventricular and subcortical white matter. Otherwise, the remaining brain parenchyma signal intensity and its brannon white interface are within normal limits on all sequences. No evidence for acute ischemia, hemorrhage or mass. No chronic infarct or extra-axial fluid collection. The midline structures are central. The basal cisterns are patent. Normal ventricular size. The orbital cavities and sella turcica demonstrate no abnormality. The visualized paranasal sinuses and mastoid air cells are well aerated. IMPRESSION: Nonspecific chronic white matter changes. No evidence for hemorrhage or PRES.
--- NOTE | 2018-01-06 13:05 | Progress Note ---
Assessment and Plan Seizure Uncontrolled HTN -improved with multiple medications Obesity Echo: moderate concentric LVH with preserved systolic function EF 60-65% Stable cardiac rust. Conservative cardiac management. Subjective Date of service: 01/06/18 Principal diagnosis: Hypertensive emergency; Seizures; Acute encephalopathy; Pulm HTN; YAYO Interval history: Patient has no complaints; wants to go home. Objective Vital Signs Temp Pulse Pulse Resp Resp BP BP 01/06/18 12:09 90 16 165/84 01/06/18 11:00 94 H 01/06/18 08:15 103 H 18 124/68 01/06/18 06:03 91 H 133/73 01/06/18 04:00 98.2 F 91 H 18 133/73 01/06/18 00:05 18 01/05/18 23:40 98.3 F 102 H 18 18 147/65 01/05/18 23:26 98 H 136/70 01/05/18 23:05 18 01/05/18 23:04 98 H 136/70 01/05/18 22:50 98 H 18 01/05/18 20:01 99 H 01/05/18 19:22 98.2 F 98 H 18 136/70 01/05/18 15:57 92 H 20 127/73 Pulse Ox 01/06/18 12:09 98 01/06/18 11:00 01/06/18 08:15 95 01/06/18 06:03 01/06/18 04:00 96 01/06/18 00:05 01/05/18 23:40 97 01/05/18 23:26 01/05/18 23:05 01/05/18 23:04 01/05/18 22:50 96 01/05/18 20:01 01/05/18 19:22 96 01/05/18 15:57 93 - Physical Examination General: No Apparent Distress, Other (obese) HEENT: Positive: PERRL Cardiac: Positive: Reg Rate and Rhythm Neuro: Positive: Grossly Intact Abdomen: Positive: Soft Skin: Positive: Clear Extremities: Absent: edema - Labs and Meds Comprehensive Metabolic Panel 01/06/18 Range/Units 05:38 Sodium 137 (137-145) mmol/L Potassium 4.0 (3.6-5.0) mmol/L Chloride 101.5 (98-107) mmol/L Carbon Dioxide 23 (22-30) mmol/L BUN 28 H (7-17) mg/dL Creatinine 2.5 H (0.7-1.2) mg/dL Glucose 188 H (65-100) mg/dL Calcium 8.5 (8.4-10.2) mg/dL - Allied health notes Allied health notes reviewed: nursing
--- NOTE | 2018-01-06 14:43 | Progress Note ---
Assessment and Plan Hypertensive emergency. Witnessed seizure, possibly related to hypertensive emergency. Acute encephalopathy, possibly a combination of hypertensive encephalopathy as well as postictal state. Morbid obesity. H/O YAYO (Non compliant with CPAP) Chronic kidney disease, possible acute element. Cardiomyopathy with cardiomegaly. Pulmonary HTN History of hypertension. Mild hyponatremia. Hyperglycemia. Elevated cardiac enzymes (NSTEMI) - continue up-titrating oral antihypertensives - supplemental oxygen for sats < 90% - counselled improved BIPAP use while asleep - azotemia per nephrology - neurology evaluation ongoing - continue Keppra for now - cardiology work-up ongoing - weight loss counselled - continue GI & VTE prophylaxis - Pulmonary HTN may be related to YAYO; will need outpatient w/up - continue orther care per attending / other consultants ... re-evaluate in am & prn Subjective Date of service: 01/06/18 Principal diagnosis: Hypertensive emergency; Seizures; Acute encephalopathy; Pulm HTN; YAYO Interval history: Patient is seen today for: Hypertensive emergency; Seizures; Acute encephalopathy; Morbid obesity; H/O YAYO (Non compliant with CPAP); CKD; Pulmonary HTN Seen and examined at bedside; 24hour events reviewed; nursing and respiratory care staff consulted; no adverse overnight events reported to me; resting in bed ; Objective Vital Signs - 12hr 01/06/18 01/06/18 01/06/18 04:00 06:03 08:15 Temperature 98.2 F Pulse Rate 91 H 91 H 103 H Respiratory 18 18 Rate Blood Pressure 133/73 124/68 Blood Pressure 133/73 [Left] O2 Sat by Pulse 96 95 Oximetry 01/06/18 01/06/18 11:00 12:09 Temperature Pulse Rate 94 H 90 Respiratory 16 Rate Blood Pressure 165/84 Blood Pressure [Left] O2 Sat by Pulse 98 Oximetry Constitutional: no acute distress, alert, other (Obese AAF, normocephalic and atraumatic with mildly increased respiratory effort) Eyes: non-icteric ENT: oropharynx moist, other (Mallampati 4) Neck: supple, no lymphadenopathy, no JVD, other (large neck circumference) Effort: mildly labored Ascultation: Bilateral: clear, diminished breath sounds (bases) Percussion: Bilateral: not dull Cardiovascular: regular rate and rhythm, other (No R/M) Gastrointestinal: normoactive bowel sounds, soft, non-tender, non-distended, other (No HSM) Integumentary: normal Extremities: no cyanosis, no edema, pulses normal, no ischemia or petechiae Neurologic: normal mental status, non-focal exam, pupils equal and round, motor strength normal and Psychiatric: mood appropriate, affect normal CBC and BMP: 01/01/18 15:46 01/06/18 05:38 ABG, PT/INR, D-dimer: PT/INR, D-dimer PT 14.3 Sec. (12.2-14.9) 01/01/18 15:46 INR 1.06 (0.87-1.13) 01/01/18 15:46 Abnormal lab findings: Abnormal Labs 01/01/18 01/01/18 01/01/18 13:43 15:46 15:46 RDW 15.4 H Pike % (Auto) 9.3 H Seg Neutrophils % 73.7 H Sodium 136 L Carbon Dioxide BUN 24 H Creatinine 1.9 H Glucose 221 H POC Glucose 212 H Troponin T 0.039 H NT-Pro-B Natriuret Pep Albumin HDL Cholesterol 77 H 01/01/18 01/01/18 01/01/18 15:46 19:45 22:55 RDW Pike % (Auto) Seg Neutrophils % Sodium Carbon Dioxide BUN Creatinine Glucose POC Glucose Troponin T 0.045 H 0.037 H NT-Pro-B Natriuret Pep 3449 H Albumin 3.5 L HDL Cholesterol 01/02/18 01/04/18 01/05/18 00:07 05:01 05:42 RDW Pike % (Auto) Seg Neutrophils % Sodium Carbon Dioxide 21 L BUN 20 H 28 H Creatinine 2.6 H 2.9 H Glucose 231 H 222 H POC Glucose 186 H Troponin T NT-Pro-B Natriuret Pep Albumin HDL Cholesterol 01/06/18 05:38 RDW Pike % (Auto) Seg Neutrophils % Sodium Carbon Dioxide BUN 28 H Creatinine 2.5 H Glucose 188 H POC Glucose Troponin T NT-Pro-B Natriuret Pep Albumin HDL Cholesterol Allied health notes reviewed: nursing
--- NOTE | 2018-01-06 15:05 | Discharge Summary ---
Providers - Providers Date of Admission: 01/01/18 16:41 Date of discharge: 01/06/18 Attending physician: ALE FRAZIER 01/01/18 Consult to Cardiac Rehabilitation [CONS] Routine Reason For Exam: Phase I 01/01/18 16:47 Consult to Physician [CONS] Routine Comment: Consulting Provider: MASON ROSALES Physician Instructions: Reason For Exam: chf 01/01/18 19:36 Consult to Physician [CONS] Routine Comment: Consulting Provider: NAFISA FONG Physician Instructions: Reason For Exam: critical care 01/02/18 12:31 Consult to Physician [CONS] Routine Comment: Consulting Provider: ZEUS SULLIVAN Physician Instructions: Reason For Exam: new sz 01/02/18 12:32 Consult to Physician [CONS] Routine Comment: Consulting Provider: MARISSA HERNANDEZ Physician Instructions: Reason For Exam: ARF 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 She recalls bitemporal headache starting the day prior to admission without nausea but with some photophobia though no phonophobia. She had no visual changes with the headache. She has had no difficulties with swallowing. The patient was admitted to the hospital with a diagnosis of hypertensive encephalopathy versus posterior reversible encephalopathy syndrome with secondary seizure. Patient was initially treated with Cardene drip and then switched to by mouth antihypertensive medications. The patient's blood pressure normalized and she is doing well. EEG showed no epileptiform activity. Dedicated discharged on 32 minutes. Disposition: DC-01 TO HOME OR SELFCARE Core Measure Documentation - Palliative Care Palliative Care/ Comfort Measures: Not Applicable Exam - Constitutional Vitals: Temp Pulse Resp BP Pulse Ox 98.2 F 90 16 165/84 98 01/06/18 04:00 01/06/18 12:09 01/06/18 12:09 01/06/18 12:09 01/06/18 12:09 Plan Activity: no driving until cleared by PCP Diet: low fat, low cholesterol, low salt Additional Instructions: 1.Follow up with PCP or [facility] in 1 week. 2.Follow up with Dr. Hernandez in 1 week. 3.Follow up with Neurologist in 1 week. 4.Follow up with Dr. 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 5.No driving for 6 months and until cleared by Physician because of seizures. Follow up with: MASON ROSALES MD [Staff Physician] - 7 Days ZEUS SULLIVAN MD [Staff Physician] - 7 Days PRIMARY CARE, [Primary Care Provider] - 3-5 Days Forms: AMA Form Prescriptions: Butalb/Acetamin/Caff 50-325-40 [Fioricet] 2 tab PO Q6H PRN #15 tablet PRN Reason: Headache cloNIDine-TTS PATCH [Catapres-Tts Patch] 0.3 mg TD Walker #6 patch Doxazosin [Cardura] 2 mg PO BID #60 tablet hydrALAZINE [Apresoline TAB] 100 mg PO TID #90 tab Isosorb Dinit/Hydralazine [Bidil 20/37.5MG] 1 each PO Q8HR #90 tablet Labetalol [Normodyne TAB] 400 mg PO BID #60 tablet levETIRAcetam [Keppra TAB] 1,000 mg PO BID #60 tablet NIFEdipine XL [Procardia Xl] 90 mg PO Q12HR #60 tablet Nitroglycerin [Nitrostat] 0.4 mg SL Q5M PRN #15 tablet PRN Reason: Chest Pain oxyCODONE /ACETAMINOPHEN [Percocet 5/325 mg] 1 - 2 tab PO Q6HR PRN #14 tablet PRN Reason: Pain Pyridoxine [Vitamin B-6] 200 mg PO QDAY #30 tablet
[2018-01-06] MEDS ORDERED: CATAPRES PO PRN (15:24)
[2018-01-06 15:36] VITALS: BP 144/72
== END 2018-01-06 16:30 | disposition home or self-care (01) | DRG 673 ==
LOC: ED 13:35 → CC1 16:41 → 4A 01-04 16:09
PROVIDERS: ADMIT Internal Medicine; ATTEND Internal Medicine
PROC: 0JH63XZ Insertion of Tunneled Vascular Access Device into Chest Subcutaneous Tissue and Fascia, Percutaneous Approach (ICD-10-PCS; 2018-01-01)
PROC: 02H633Z Insertion of Infusion Device into Right Atrium, Percutaneous Approach (ICD-10-PCS; 2018-01-01)
PROC: B2141ZZ Fluoroscopy of Right Heart using Low Osmolar Contrast (ICD-10-PCS; 2018-01-01)
PROC: B244ZZZ Ultrasonography of Right Heart (ICD-10-PCS; 2018-01-01)
PROC: 5A09357 Assistance with Respiratory Ventilation, Less than 24 Consecutive Hours, Continuous Positive Airway Pressure (ICD-10-PCS; 2018-01-02)
PROC: 5A09357 Assistance with Respiratory Ventilation, Less than 24 Consecutive Hours, Continuous Positive Airway Pressure (ICD-10-PCS; principal; 2018-01-03)
PROC: 5A09357 Assistance with Respiratory Ventilation, Less than 24 Consecutive Hours, Continuous Positive Airway Pressure (ICD-10-PCS; 2018-01-04)
PROC: 5A09357 Assistance with Respiratory Ventilation, Less than 24 Consecutive Hours, Continuous Positive Airway Pressure (ICD-10-PCS; 2018-01-05)
DX: N17.0 Acute kidney failure with tubular necrosis (principal); I21.4 Non-ST elevation (NSTEMI) myocardial infarction; I50.43 Acute on chronic combined systolic (congestive) and diastolic (congestive) heart failure; Z68.43 Body mass index [BMI] 50.0-59.9, adult; I13.0 Hypertensive heart and chronic kidney disease with heart failure and stage 1 through stage 4 chronic kidney disease, or unspecified chronic kidney disease; I67.4 Hypertensive encephalopathy; I16.1 Hypertensive emergency; E87.1 Hypo-osmolality and hyponatremia; I42.9 Cardiomyopathy, unspecified; G40.901 Epilepsy, unspecified, not intractable, with status epilepticus; Z96.653 Presence of artificial knee joint, bilateral; Z96.612 Presence of left artificial shoulder joint; I27.20 Pulmonary hypertension, unspecified; G47.33 Obstructive sleep apnea (adult) (pediatric); R73.9 Hyperglycemia, unspecified; M10.9 Gout, unspecified; N18.3 Chronic kidney disease, stage 3 (moderate); E66.01 Morbid (severe) obesity due to excess calories; Z82.49 Family history of ischemic heart disease and other diseases of the circulatory system; Z90.49 Acquired absence of other specified parts of digestive tract; Z90.710 Acquired absence of both cervix and uterus; Z90.722 Acquired absence of ovaries, bilateral; Z82.3 Family history of stroke; Z82.0 Family history of epilepsy and other diseases of the nervous system; Z71.3 Dietary counseling and surveillance
CPT/HCPCS: 36415; 36558; 70450; 70551; 71045; 76770; 77001; 80048; 80061; 80074; 81001; 82550; 82553; 82962; 83880; 84484; 85025; 85610; 85670; 85730; 90686; 93005; 93010; 93306; 94660; 95819; 96365; 96375; 99292; C1751; J0360; J1644; J1953; J2250; J3010; J7050